=== PATIENT | female | born 1945 | race Caucasian/White ===

== ENCOUNTER 2018-05-03 13:42 | Outpatient (CLI) | payer MEDICARE, OTHER, SELFPAY ==
[2018-05-03 14:39] LABS: Abs Immature Grans 0.03 k/cumm (0.0-0.09); Absolute Basophil Count 0.12 k/cumm (0.0-0.2); Absolute Eosinophil Count 0.37 k/cumm (0.0-0.7); Absolute Monocyte Count 0.56 k/cumm (0.11-0.7); Basophils % 1.9; Eosinophils % 5.9; HCT 40.4 % (36.0-46.0); HGB 13.1 g/dL (12.0-15.5); Immature Grans % 0.5; Lymphocytes % 31.8; Mean Corp. HGB Concentration 32.4 g/dL (32.0-36.0); Mean Corpuscular Hemoglobin 25.8 pg (27.0-33.0); Mean Corpuscular Volume 79.5 fL (80-95); Mean Platelet Volume 9.9 fL (8.0-11.0); Monocytes % 8.9; Platelet Count 223 x1000/uL (130-400); RBC 5.08 m/cumm (4.00-5.20); RBC Distribution Width 15.6 % (11.7-14.6); White Blood Cell Count 6.28 k/cumm (4.4-10.8)
[2018-05-03 15:15] LABS: ALT 20 U/L (12-78); AST 19 U/L (15-37); Albumin 4.1 g/dL (3.4-5.0); Alkaline Phosphatase 58 U/L (46-116); Anion Gap 6.7 mmol/L (3-11); BUN 20 mg/dL (7-18); Bilirubin, Total 0.5 mg/dL (0.2-1.0); CO2 29.3 mmol/L (21.0-32.0); CREATININE 1.06 mg/dL (0.55-1.02); Calcium 9.2 mg/dL (8.5-10.1); Chloride 100 mmol/L (98-107); Cholesterol 243 mg/dL (50-200); Estimated GFR 50.81 (mL/min/1.73m2); Glucose 95 mg/dL (70-100); HDL Cholesterol 47 mg/dL (40-60); LDL CHOLESTEROL 148 mg/dL (<100); Potassium 4.5 mmol/L (3.5-5.1); Sodium 136 mmol/L (136-145); TSH (W/Ref FT4) 2.48 uIU/mL (0.358-3.74); Triglyceride 256 mg/dL (30-150)
== END 2018-05-03 14:02 ==
PROVIDERS: PCP Family Medicine; Visit Provider Family Medicine
DX: I10 Essential (primary) hypertension (principal); R00.2 Palpitations; D64.9 Anemia, unspecified
CPT/HCPCS: 36415; 80053; 80061; 83721; 84443; 85025

== ENCOUNTER 2018-10-31 12:15 | Outpatient (CLI) | payer MEDICARE, OTHER, SELFPAY ==
--- NOTE | 2018-10-31 12:29 | DI.RAD_ITS ---
SYMPTOM/DIAGNOSIS: COUGH, EX SMOKER, R05 PA AND LATERAL CHEST: The heart is not enlarged. There are a few areas of linear pulmonary scarring in the bases. Otherwise the lungs are clear. No pleural effusion is seen. CONCLUSION: No evidence of acute disease.
== END 2018-10-31 12:35 ==
PROVIDERS: PCP Family Medicine; Visit Provider Family Medicine
DX: R05 Cough (principal); Z87.891 Personal history of nicotine dependence
CPT/HCPCS: 71046

== ENCOUNTER 2019-05-17 01:46 | Outpatient (CLI) | payer MEDICARE, OTHER, SELFPAY ==
--- NOTE | 2019-05-17 10:48 | DI.US_ITS ---
EXAM: US ABDOMEN CLINICAL HISTORY: nausea R11.0 TECHNIQUE: Ultrasound performed using standard protocol. COMPARISON: No exams were available for comparison FINDINGS: The liver is normal in size and echogenicity. No biliary dilatation or focal liver lesions are seen . The gallbladder is unremarkable, without evidence of stones or wall thickening. The pancreas was not well seen. The aorta is normal in diameter. Small renal cysts are noted. There is no evidence of hydronephrosis or renal calculi. IMPRESSION: Incidental renal cysts. No evidence of gallbladder or liver abnormality.
[2019-05-17 12:10] LABS: HCT 42.3 % (36.0-46.0); HGB 14.1 g/dL (12.0-15.5); Mean Corp. HGB Concentration 33.3 g/dL (32.0-36.0); Mean Platelet Volume 9.6 fL (8.0-11.0); Platelet Count 235 x1000/uL (130-400); RBC 5.22 m/cumm (4.00-5.20); RBC Distribution Width 15.8 % (11.7-14.6); White Blood Cell Count 5.51 k/cumm (4.4-10.8)
[2019-05-17 12:45] LABS: Iron 142 ug/dL (50-175)
[2019-05-17 13:00] LABS: ALT 16 U/L (14-59); AST 20 U/L (15-37); Albumin 4.3 g/dL (3.4-5.0); Alkaline Phosphatase 51 U/L (46-116); Anion Gap 8.8 mmol/L (3-11); BUN 10 mg/dL (7-18); Bilirubin, Total 0.9 mg/dL (0.2-1.0); CO2 29.2 mmol/L (21.0-32.0); CREATININE 1.04 mg/dL (0.55-1.02); Calcium 9.4 mg/dL (8.5-10.1); Chloride 100 mmol/L (98-107); Glucose 90 mg/dL (70-100); Sodium 138 mmol/L (136-145); TSH (W/Ref FT4) 2.61 uIU/mL (0.36-3.74)
== END 2019-05-17 02:06 ==
PROVIDERS: PCP Family Medicine; Visit Provider Family Medicine
DX: R11.0 Nausea (principal); N28.1 Cyst of kidney, acquired; E61.1 Iron deficiency; I10 Essential (primary) hypertension; J20.9 Acute bronchitis, unspecified; J44.9 Chronic obstructive pulmonary disease, unspecified; L67.9 Hair color and hair shaft abnormality, unspecified; K59.00 Constipation, unspecified; Z87.19 Personal history of other diseases of the digestive system; Z98.890 Other specified postprocedural states
CPT/HCPCS: 36415; 80053; 85027; 76700; 83540; 84443

== ENCOUNTER 2020-01-15 12:35 | Outpatient (CLI) | payer MEDICARE, OTHER, SELFPAY ==
--- NOTE | 2020-01-15 12:45 | DI.RAD_ITS ---
EXAM: XR FOOT RT COMPLETE CLINICAL HISTORY: r foot pain, M79.671. TECHNIQUE: 2D digital imaging was performed. COMPARISON: CR RIGHT FOOT COMPLETE from 02/08/2015 FINDINGS: The screw is again seen in the head of the 5th metatarsal. There has been a prior fusion of proximal and middle phalanges 2nd as well as 1st metatarsal bunionectomy. There is mild spurring at the Achi lles insertion. Vascular calcifications are faintly seen. There is a tiny accessory navicular. IMPRESSION: Postsurgical and degenerative changes. No acute abnormality. DATA REPOSITORY: RADIATION DOSE DELIVERED:
== END 2020-01-15 12:55 ==
PROVIDERS: PCP Family Medicine; Visit Provider Family Medicine
DX: M79.671 Pain in right foot (principal); M19.071 Primary osteoarthritis, right ankle and foot; Z98.890 Other specified postprocedural states
CPT/HCPCS: 73630

== ENCOUNTER 2020-02-22 13:49 | Outpatient (REF) | payer MEDICARE, OTHER, SELFPAY ==
--- NOTE | 2020-02-22 13:00 | PAPFT_PTH ---
PATIENT: Meredith Pak LOC: [facility] U#:[id number] AGE/SX: 74/F ROOM: RE02/22/[address]: KESHA Becerra : 1945 BED: DIS: 02/22/2020 SPEC #: [id number] RECD: 02/22/20 17:42 STATUS: BEKAH REQ #: [id number] MICHAEL: 02/22/20 13:[address]: Virginia Patel DEPT: [facility] Cytology RECD BY: Yeny Mccarty ENTERED: 02/22/20 17:42 SP TYPE: PAPFT OTHR DR: Viki Loera MD, DC Tissues: 1 - CX/ENDOCX FOR PAP SMEARS Procedures: PAP THIN PREP/[facility] Screening HPV DNA PROBE Comments: [id number]
== END 2020-02-22 14:09 ==
LOC: LBN 13:49
PROVIDERS: PCP Family Medicine; Visit Provider Nurse Practitioner Family
DX: Z12.4 Encounter for screening for malignant neoplasm of cervix (principal); Z11.51 Encounter for screening for human papillomavirus (HPV)
CPT/HCPCS: 88142; 87624

== ENCOUNTER 2020-05-14 16:10 | Outpatient (REF) | payer MEDICARE, OTHER, SELFPAY ==
[2020-05-15 11:54] LABS: *AMPHETAMINES SCREEN URINE Negative (Negative); *BARBITURATES SCREEN URINE Negative (Negative); *BENZODIAZEPINES SCREEN URINE POSITIVE (Negative); Cannabinoids THC Negative (Negative); Cocaine Screen,Urine Negative (Negative); METHADONE URINE SCREEN Negative (Negative); OPIATES URINE SCREEN Negative (Negative)
[2020-05-15 12:00] LABS: Tricyclic Antidepressants Negative (Negative)
[2020-05-18 14:13] LABS: Fentanyl Interpretation Positive.; Fentanyl by LC-MS/MS 108.2 ng/mL; Norfentanyl by LC-MS/MS 997.8 ng/mL
== END 2020-05-14 16:30 ==
LOC: LBN 16:10
PROVIDERS: PCP Family Medicine; Visit Provider Family Medicine
DX: G89.4 Chronic pain syndrome (principal); Z79.899 Other long term (current) drug therapy
CPT/HCPCS: 80307; 80354

== ENCOUNTER 2020-07-04 11:54 | Outpatient (CLI) | payer MEDICARE, OTHER, SELFPAY ==
--- NOTE | 2020-07-04 15:00 | DI.RAD_ITS ---
EXAM: XR KNEE LT 3V AP,LAT,MARCOS CLINICAL HISTORY: left knee pain m25.569. TECHNIQUE: 2D digital imaging was performed. COMPARISON: No exams were available for comparison FINDINGS: BONES: No acute fracture is present. No bony destructive lesion is seen. JOINTS: The knee is normally aligned. No joint effusion is seen. Joint spaces are well maintained. There is mild periarticular spurring. Chondrocalcinosis is seen. SOFT TISSUE: Vascular calcifications are present. IMPRESSION: Mild degenerative changes and chondrocalcinosis. DATA REPOSITORY: RADIATION DOSE DELIVERED:
== END 2020-07-04 12:14 ==
PROVIDERS: PCP Family Medicine; Visit Provider Family Medicine
DX: M17.12 Unilateral primary osteoarthritis, left knee (principal); M11.262 Other chondrocalcinosis, left knee
CPT/HCPCS: 73562

== ENCOUNTER 2020-07-30 22:57 | Outpatient (REF) | payer MEDICARE, OTHER, SELFPAY ==
[2020-07-30 21:40] LABS: HCT 40.9 % (36.0-46.0); HGB 13.7 g/dL (11.2-15.7); MCH 26.4 pg (27.0-33.0); MCHC 33.5 % (32.0-36.0); MPV 10.9 fL (8.0-11.0); Platelet Count 234 10^3/uL (130-400); RBC 5.18 10^6/uL (3.93-5.22); RDW 14.9 % (11.7-14.6); RDW-SD 43.3 fL; WBC 5.68 10^3/uL (4.4-10.8)
[2020-07-30 22:35] LABS: D-Dimer 1531 ng/mlFEU (<500)
[2020-07-30 22:37] LABS: ESR 13 mm/hr (0-30)
== END 2020-07-30 23:17 ==
LOC: LBN 22:57
PROVIDERS: PCP Family Medicine; Visit Provider Family Medicine
DX: R79.89 Other specified abnormal findings of blood chemistry (principal); D64.9 Anemia, unspecified; M25.562 Pain in left knee; J44.0 Chronic obstructive pulmonary disease with (acute) lower respiratory infection; J20.9 Acute bronchitis, unspecified
CPT/HCPCS: 85027; 85652; 85379

== ENCOUNTER 2020-08-05 02:21 | Outpatient (CLI) | payer MEDICARE, OTHER, SELFPAY ==
--- NOTE | 2020-08-05 07:45 | DI.US_ITS ---
EXAM: US LOWER EXTREMITY VENOUS LT CLINICAL HISTORY: L leg pain/ elevated d dimer/ h/o breast ca,m79.605 TECHNIQUE: Grayscale, color, and doppler imaging of the deep venous system of the left lower extremi ty was performed. No exams were available for comparison FINDINGS: There is no evidence of intraluminal thrombus and there is normal compression and augmentation demons trated within the common femoral veis, femoral veis, and popliteal vein. In the ipsilateral calf the interrogated veins also exhibit normal compression/ augmentation properti es. The greater saphenous veins also appear patent as does the saphenofemoral junction. IMPRESSION: 1. No evidence of DVT in the left lower extremity. 2. Incidentally noted is significant atherosclerotic disease on the arterial side in the distal left femoral artery and in the ipsilateral popliteal artery. 3. Please note this patient had chest CTA today which is positive for right-sided pulmonary embolus . Please see that separate report. DATA REPOSITORY:
--- NOTE | 2020-08-05 07:45 | DI.CT_ITS ---
EXAM: CT CHEST PE CTA CLINICAL HISTORY: cont elevated d dimer/ heavy smoking hx,? pe,acute bronchitis. TECHNIQUE: Imaging Protocol: CT angiography of the chest was performed using pulmonary embolus kevin col. Multi planar reconstructions were performed. CONTRAST MATERIAL: Intravenous: Omnipaque 350 Contrast volume: 75 cc COMPARISON: CT CTA ABDOMEN PELVIS from 07/16/2017 FINDINGS: CHEST: PULMONARY ARTERIES: There is intraluminal filling defect in the 2nd order right upper lobe vessel con sistent with pulmonary embolus. There are no obvious filling defects within the lower lobe vessels. No intraluminal filling defects seen in the opposite-left lung.No evidence of central intraluminal d efect. LUNGS: No evidence of pulmonary infarction. COPD. Interstitial disease. Some mild pleural based in filtrate is seen in the posterior segment of the right upper lobe. Also in the posterior basal segme nts of both lower lobes and the atelectasis is seen in the lingular segment of the left lung. There are no pleural effusions. No ominous pulmonary nodules. No significant focal findings in trachea an d mainstem bronchi.. MEDIASTINUM: There is no hilar nor mediastinal adenopathy. Visualized thyroid unremarkable. CARDIAC: Heart size is normal. There is no pericardial effusion.Caliber of the thoracic aorta is wit hin normal limits. There is no evidence of shift of the interventricular septum. PARTIALLY VISUALIZED UPPERMOST ABDOMEN: No significant adrenal masses. There is a cyst in the superi or pole of the left kidney noted which measures 2 centimetres. The entire kidneys are not included i n the field of view. OSSEOUS: No significant osseous lesions.. IMPRESSION: 1. Positive study. There is a single intraluminal filling defect in what appears to be a right uppe r lobe pulmonary artery. No other intraluminal filling defects noted on either side. No pleural eff usions. No obvious pulmonary infarction.. 2. Findings are superimposed upon COPD and some interstitial disease as well as some mild infiltrates bilaterally as described above. No intrathoracic adenopathy evident. 3. RADIATION DOSE DELIVERED: LINK-TO-SR Total DLP DATA REPOSITORY: All CT scans at this facility are submitted to the National Radiology Data Registry (NRDR) Dose Index Registry (DIR) with the [employer] ([employer]). RADIATION OPTIMIZATION: All CT scans at this facility use at least one of these dose optimization te chniques: automated exposure control; mA and/or kV adjustment per patient size (includes targeted exa ms where dose is matched to clinical indication); or iterative reconstruction.
[2020-08-05 10:32] LABS: CREATININE 1.12 mg/dL (0.55-1.02); Estimated GFR 47.43 (mL/min/1.73m2)
[2020-08-05] MEDS: Omnipaque 350 MG/ML 100 ML BTL IJ (11:16)
[2020-08-05] MEDS: Normal Saline - Diluent 50 ML VIAL IV (11:17)
== END 2020-08-05 02:41 ==
PROVIDERS: PCP Family Medicine; Visit Provider Family Medicine
DX: R91.8 Other nonspecific abnormal finding of lung field (principal); J44.9 Chronic obstructive pulmonary disease, unspecified; M79.605 Pain in left leg; R79.1 Abnormal coagulation profile; I26.99 Other pulmonary embolism without acute cor pulmonale; Z87.891 Personal history of nicotine dependence
CPT/HCPCS: 71275; 87077; 81003; 81015; 82565; 87086; 87186; 93971; J3490

== ENCOUNTER 2020-08-05 04:08 | Outpatient (CLI) | payer MEDICARE, OTHER, SELFPAY ==
[2020-08-05 12:13] LABS: Bilirubin Negative (Negative); Blood Small (Negative); Clarity Clear (Clear); Glucose Negative (Negative); Ketones Negative (Negative); Leukocyte Esterase Small (Negative); Nitrite Negative (Negative); Specific Gravity 1.015 (1.005-1.025); Urobilinogen 0.2 EU/dL (Up TO 0.2); pH 6.5 (5-8)
[2020-08-05 12:24] LABS: Bacteria Few HPF (Negative); C & S Indicated? Yes; Casts Negative LPF (Negative); Crystals Negative HPF (Negative); Epithelial Cells Rare HPF (Negative); Mucus Trace (Negative)
== END 2020-08-05 04:28 ==
PROVIDERS: PCP Family Medicine; Visit Provider Family Medicine
DX: R30.0 Dysuria (principal)
CPT/HCPCS: 87077; 81003; 81015; 87086; 87186

== ENCOUNTER → 2020-08-12 13:52 | Outpatient (BNVA) | payer MEDICARE, OTHER, SELFPAY | PROVIDERS: PCP Family Medicine; Referring Provider Family Medicine; Visit Provider Student in an Organized Health Care Education/Training Program | DX: M65.332 Trigger finger, left middle finger (principal) | CPT/HCPCS: 99203; 99204 ==

== ENCOUNTER 2020-09-10 06:23 | Day surgery (SDC) | payer MEDICARE, OTHER, SELFPAY ==
[2020-09-10 06:30] VITALS: BP 117/81; PULSE 87; RESP 18; TEMP 36.3; O2SAT 94
--- NOTE | 2020-09-10 07:27 | W.PM.DSUDISC ---
Discharge Plan Disposition Patient Disposition: HOME Condition: Good Discharge Details Reason For Visit: Left middle finger trigger finger Attending Provider: Yazan Merchant Primary Care Provider: Viki Loera Home Meds and New Rx's Prescriptions: Continued albuterol sulfate [Proventil HFA] 90 mcg/actuation HFA aerosol inhaler 2 puff Inhalation Q4H PRN PRN (Reason: bronchospasm) Qty: 1 RF: 11 cyanocobalamin (vitamin B-12) 100 mcg tablet 100 mcg PO DAILY RF: 0 clobetasol 0.05 % cream 1 applic Topical BID PRN (Reason: rash) Qty: 15 RF: 0 lidocaine 5 % adhesive patch,medicated 1 patch TP DAILY PRN (Reason: radiculopathy) Qty: 30 RF: 5 NARCOTIC CONTRACT RF: 0 Narcan 4 MG spray,non-aerosol 4 mg NS DAILY PRNQty: 2 RF: 12 (DME) Space Chamber Plus 1 EACH spacer Miscellaneous PRN Qty: 1 RF: 1 aspirin,buffd-calcium carb-mag [Tri-Buffered Aspirin] 325 mg tablet 325 mg PO DAILY Qty: 90 RF: 11 sennosides-docusate sodium 8.6-50 mg tablet 2 tab PO TID Qty: 540 RF: 12 ibuprofen 600 mg tablet 600 mg PO TID PRN (Reason: pain) Qty: 90 RF: 0 cholecalciferol (vitamin D3) [Vitamin D3] 50 mcg (2,000 unit) capsule 2,000 unit PO DAILY Qty: 90 RF: 12 polyethylene glycol 3350 [Miralax] 17 gram powder in packet 17 gm PO DAILY Qty: 100 RF: 4 betamethasone dipropionate 0.05 % cream 1 applic Topical BID PRN (Reason: rash) Qty: 45 RF: 0 epinephrine 0.3 mg/0.3 mL auto-injector 0.3 mg IM ONCE Qty: 2 RF: 12 amlodipine 10 mg tablet 10 mg PO DAILY Qty: 90 RF: 4 omeprazole 20 mg capsule,delayed release(DR/EC) 20 mg PO DAILY Qty: 90 RF: 12 budesonide-formoterol [Symbicort] 160-4.5 mcg/actuation HFA aerosol inhaler 2 puff Inhalation BID Qty: 3 RF: 11 bupropion HCl 100 mg tablet sustained-release 12 hr 100 mg PO BID Qty: 180 RF: 12 clonidine HCl 0.1 mg tablet 0.1 mg PO BID Qty: 180 RF: 12 gabapentin 800 mg tablet 800 mg PO TID Qty: 270 RF: 12 quetiapine 100 mg tablet 200 mg PO HS Qty: 180 RF: 12 prednisone 20 mg tablet 20 mg PO DAILY Qty: 10 RF: 0 apixaban 5 mg tablet See Rx Instructions PO BID Qty: 194 RF: 6 ciprofloxacin HCl 250 mg tablet 250 mg PO BID Qty: 14 RF: 0 diazepam 5 mg tablet 5 mg PO QHS MDD 5mg PRN (Reason: sleep) Qty: 30 RF: 4 fentanyl 12 mcg/hr patch 72 hour 1 patch TD Q48H MDD 1 Qty: 15 RF: 0 fentanyl 25 mcg/hr patch 72 hour 1 patch TD Q48H MDD 1 Qty: 15 RF: 0 Discharge Instructions Stand Alone Forms: Shonda Henao Finger Release Referrals: Yazan Merchant MD [ [facility] STAFF PHYSICIAN] - Activity:: Elevate Remove Dressings/Wound Care:: 48 hours Shower/Bathe:: 48 hours Diet:: As Tolerated Discharge Orders Discharge Orders: Discharge Order (Routine); Ordered 09/10/20 Ordered By: Carina Armenta DS: Diagnosis Discharge Diagnosis (1) Trigger middle finger of left hand: Status: Acute
[2020-09-10] MEDS: Sodium Bicarbonate 50 MEQ/50 ML VIAL (07:30)
--- NOTE | 2020-09-10 07:57 | ROE_ITS ---
Date of service: 09/10/20 Time of Service: 07:57 Operative Note Operative Note DATE OF PROCEDURE: 09/10/20 PRE-OP DIAGNOSIS: Left Middle Finger Trigger Finger POST-OP DIAGNOSIS: same PROCEDURE: Trigger Finger Release - Left Middle Finger SURGEON: Yazan Merchant ANESTHESIA: local ESTIMATED BLOOD LOSS: 2 PATHOLOGY: none sent TOURNIQUET TIME: 0 COMPLICATIONS: None Patient was transported to: same day Patient's condition: stable Indications: I have seen Pat in clinic for symptoms of a trigger finger. The catching, clicking, locking, and pain limited function. The diagnosis of trigger finger was evident. The symptoms had not responded to conservative measures. I discussed trigger finger release with the patient. I reviewed the risks of the procedure to include, but not limited to, bleeding, infection, pain, stiffness, incomplete release, damage to nerves or vessels, continued catching, recurrence. Despite these risks, the patient elected to proceed. Findings: There was a tightened A1 jessica which was released. The flexor tendons were inspected and the patient was able to move the finger without any catching, clicking, or locking. Procedure Description: Pat was greeted in the preoperative holding area where the correct side was identified and marked. The consent was reviewed with the patient and signed. All questions were answered. She was taken back to the operating room. The patient was placed into the supine position on the operating room table with the left arm on an arm board. All bony prominences were well padded. No prophylactic antibiotics were administered since this was a clean, elective hand surgical case. The left arm was then prepped with Chloraprep and draped in a standard fashion with stockinette and extremity drape. A timeout to confirm correct identity, side and site, procedure, allergies, anesthesia, and medical concerns was performed. The surgical site was marked as a longitudinal incision directly over the A1 jessica of the involved digit. This was confirmed with palpation during finger flexion. This area, overlying the metacarpal head, was then anesthetized with 1% Lidocaine. The patient tolerated this well and once the anesthetic had setup, the procedure began. A longitudinal incision was made through skin only, approximately 1cm. The deep tissues were dissected bluntly. Once the A1 jessica and flexor tendons were identified the soft tissue including neurovascular structures were retracted medially and laterally. There were no crossing structures over the A1 jessica. The proximal edge of the jessica was identified and the jessica was incised with tenotomy scissors. There was a release of the tendons once this was fully released. The patient was asked to move the finger into deep flexion and back to extension. There was no recreation of the pre- operative symptoms. The hand was then once more inspected for any A0 jessica or area of possible constriction. The wound was then irrigated and the skin was closed with a 4-0 Nylon. This was dressed with gauze and a Conform dressing. The patient tolerated the procedure well and was returned to the Same Day Surgery area in a stable condition suffering no known complication.
== END 2020-09-10 08:10 | disposition home or self-care (01) ==
PROVIDERS: PCP Family Medicine; Visit Provider Student in an Organized Health Care Education/Training Program
PROC: (CPT 26055; principal; 2020-09-10 07:30)
DX: M65.332 Trigger finger, left middle finger (principal)
CPT/HCPCS: 26055

== ENCOUNTER → 2020-09-20 10:30 | Outpatient (BNVA) | payer MEDICARE, OTHER, SELFPAY | PROVIDERS: PCP Family Medicine; Referring Provider Family Medicine; Visit Provider Physician Assistant | DX: Z47.89 Encounter for other orthopedic aftercare (principal); M65.332 Trigger finger, left middle finger ==

== ENCOUNTER → 2020-09-30 14:36 | Outpatient (BNVA) | payer MEDICARE, OTHER, SELFPAY | PROVIDERS: PCP Family Medicine; Referring Provider Family Medicine; Visit Provider Student in an Organized Health Care Education/Training Program | DX: Z47.89 Encounter for other orthopedic aftercare (principal); M65.332 Trigger finger, left middle finger ==

== ENCOUNTER → 2020-10-28 13:06 | Outpatient (BNVA) | payer MEDICARE, OTHER, SELFPAY | PROVIDERS: PCP Family Medicine; Referring Provider Family Medicine; Visit Provider Student in an Organized Health Care Education/Training Program | DX: Z47.89 Encounter for other orthopedic aftercare (principal); M65.332 Trigger finger, left middle finger | CPT/HCPCS: 99213 ==

== ENCOUNTER 2020-10-29 09:07 | Day surgery (SDC) | payer MEDICARE, OTHER, SELFPAY ==
--- NOTE | 2020-10-29 07:29 | PDOC.DSDIS_ITS ---
Discharge Plan Disposition Patient Disposition: HOME Condition: Good Discharge Details Reason For Visit: Trigger middle finger of left hand Attending Provider: Yazan Merchant Primary Care Provider: Viki Loera Home Meds and New Rx's Prescriptions: Continued albuterol sulfate [Proventil HFA] 90 mcg/actuation HFA aerosol inhaler 2 puff Inhalation Q4H PRN PRN (Reason: bronchospasm) Qty: 1 RF: 11 cyanocobalamin (vitamin B-12) 100 mcg tablet 100 mcg PO DAILY RF: 0 clobetasol 0.05 % cream 1 applic Topical BID PRN (Reason: rash) Qty: 15 RF: 0 polyethylene glycol 3350 [Miralax] 17 gram powder in packet See Rx Instructions PO DAILY Qty: 100 RF: 4 fentanyl 12 mcg/hr patch 72 hour 1 patch TD Q48H MDD 1 Qty: 15 RF: 0 fentanyl 25 mcg/hr patch 72 hour 1 patch TD Q48H MDD 1 Qty: 15 RF: 0 lidocaine 5 % adhesive patch,medicated 1 patch TP DAILY PRN (Reason: radiculopathy) Qty: 30 RF: 5 NARCOTIC CONTRACT RF: 0 Narcan 4 MG spray,non-aerosol 4 mg NS DAILY PRNQty: 2 RF: 12 (DME) Space Chamber Plus 1 EACH spacer Miscellaneous PRN Qty: 1 RF: 1 aspirin,buffd-calcium carb-mag [Tri-Buffered Aspirin] 325 mg tablet 325 mg PO DAILY Qty: 90 RF: 11 ibuprofen 600 mg tablet 600 mg PO TID PRN (Reason: pain) Qty: 90 RF: 0 cholecalciferol (vitamin D3) [Vitamin D3] 50 mcg (2,000 unit) capsule 2,000 unit PO DAILY Qty: 90 RF: 12 polyethylene glycol 3350 [Miralax] 17 gram powder in packet 17 gm PO DAILY Qty: 100 RF: 4 betamethasone dipropionate 0.05 % cream 1 applic Topical BID PRN (Reason: rash) Qty: 45 RF: 0 epinephrine 0.3 mg/0.3 mL auto-injector 0.3 mg IM ONCE Qty: 2 RF: 12 budesonide-formoterol [Symbicort] 160-4.5 mcg/actuation HFA aerosol inhaler 2 puff Inhalation BID Qty: 3 RF: 11 bupropion HCl 100 mg tablet sustained-release 12 hr 100 mg PO BID Qty: 180 RF: 12 clonidine HCl 0.1 mg tablet 0.1 mg PO BID Qty: 180 RF: 12 gabapentin 800 mg tablet 800 mg PO TID Qty: 270 RF: 12 apixaban 5 mg tablet See Rx Instructions PO BID Qty: 194 RF: 6 diazepam 5 mg tablet 5 mg PO QHS MDD 5mg PRN (Reason: sleep) Qty: 30 RF: 4 amlodipine 10 mg tablet 10 mg PO DAILY Qty: 90 RF: 4 sennosides-docusate sodium 8.6-50 mg tablet 2 tab PO TID Qty: 540 RF: 12 omeprazole 20 mg capsule,delayed release(DR/EC) 20 mg PO DAILY Qty: 90 RF: 12 quetiapine 100 mg tablet 200 mg PO HS Qty: 180 RF: 12 fentanyl 25 mcg/hr patch 72 hour 1 patch TD Q48H MDD 1 Qty: 15 RF: 0 fentanyl 12 mcg/hr patch 72 hour 1 patch TD Q48H MDD 1 Qty: 15 RF: 0 Discharge Instructions Additional Instructions: Trigger Finger Revision Discharge Instructions Activity: You may use your fingers for light activity. You should limit any excessive motion or forceful gripping until the sutures have been removed. Dressings: You should keep the initial surgical dressing in place for at least 3 days. You may remove your dressings and get the wound wet after 3 days. You should keep the dressings and the wound clean at all times. You may keep the initial dressing in place until your follow-up but keep the wound covered with light gauze until the sutures are removed. Medications: - You should take Tylenol around the clock as per java sybase developer's recommendations. Follow-up: 7-10 days for wound check and suture removal. Referrals: Yazan Merchant MD [ [facility] STAFF PHYSICIAN] - Activity:: Elevate Remove Dressings/Wound Care:: 72 hours Shower/Bathe:: 72 hours Diet:: As Tolerated Discharge Orders Discharge Orders: Discharge Order (Routine); Ordered 10/29/20 Ordered By: Carina Armenta DS: Diagnosis Discharge Diagnosis (1) Trigger middle finger of left hand: Status: Acute
[2020-10-29 09:49] VITALS: BP 117/73; PULSE 74; RESP 16; TEMP 36.3; O2SAT 92
[2020-10-29] MEDS: Sodium Bicarbonate 50 MEQ/50 ML SYR (13:19)
--- NOTE | 2020-10-29 22:13 | ROE_ITS ---
Date of service: 10/29/20 Time of Service: 13:13 Operative Note Operative Note DATE OF PROCEDURE: 10/29/20 PRE-OP DIAGNOSIS: Left Middle Finger Recurrent Trigger and Tenosynovitis POST-OP DIAGNOSIS: same PROCEDURE: Left Middle Finger Tenosynovetomy SURGEON: Yazan Merchant ANESTHESIA TYPE: Local By Surgeon Refer to Anesthesia Record ESTIMATED BLOOD LOSS: 5 PATHOLOGY: none sent TOURNIQUET TIME: 0 COMPLICATIONS: None Patient was transported to: same day Patient's condition: stable Indications: I have seen Meredith in clinic for increasing pain and restricted motion after trigger finger release. There was significant pain, thickness of the flexor tendon, and worsening restricted motion. Given her continued worsen ing of symptoms with concern of inflammatory tenosynovitis vs acute Dupuytren's, I offered surgical debridement of the tendon with revision trigger finger release and tenosynovectomy. I reviewed the risks of the procedure to include, but not limited to, bleeding, infection, pain, stiffness, incomplete release, damage to nerves or vessels, continued catching, recurrence. Despite these risks, the patient elected to proceed. Findings: There was thickned inflmmatory tissue encasing the flexor tendons. Notable fluid around the tendons but no Dupuytren's disease. Aggressive synovectomy was performed down into the palm. She was able to move the finger without any catching, clicking, or locking. Procedure Description: Meredith was greeted in the preoperative holding area where the correct side was identified and marked. The consent was reviewed with the patient and signed. All questions were answered. Meredith was taken back to the operating room. The patient was placed into the supine position on the operating room table with the left arm on an arm board. All bony prominences were well padded. No prophylactic antibiotics were administered since this was a clean, elective hand surgical case. The left arm was then prepped with Chloraprep and draped in a standard fashion with [facility] kinette and extremity drape. A timeout to confirm correct identity, side and site, procedure, allergies, anesthesia, and medical concerns was performed. The surgical site was marked as a Martha type incision across the A1 jessica and moving proximally into the palm of the involved digit, left middle finger. This area was then anesthetized with 1% Lidocaine with epinephrine, buffered with sodium bicarbonate. The patient tolerated this well and once the anesthetic had setup, the procedure began. The Martha incision was made with sharp dissection through skin only. The deep tissues were dissected bluntly. The deeper tissues were bluntly dissected to elevate the skin flaps and soft tissue including neurovascular structures were retracted medially and laterally. Interestingly, there is a dense casing seen over the flexor tendons where they were not initially visible. I was able to incise this casing and visualize the tendons. I then completed the release of this all the way through the palm and into the region of the residual A1 jessica. It was impressed with how dense this tissue was. Underneath this casing was dense and thickened and sticky inflammatory tissue. Working through each of the slips of the FDS as well as the FDP tendons, I removed and resected any inflammatory tissue throughout the width of the wound. There was some dense fibrous tissue overlying the flexor tendons but there is no true Dupuytren's cord appreciable. I continue to work proximally and distally to remove any of the inflammatory tissue from around the tendon. There was notable fluid seen around the tendon once this tissue was removed. The tendons were freely mobile and range of motion was tested and showed no signs of significant limitations nor clicking or triggering. The wound was then irrigated and the skin was closed with a 4-0 Nylon. This was dressed with gauze and a Conform dressing. The patient tolerated the procedure well and was returned to the Same Day Surgery area in a stable condition suffering no known complication.
== END 2020-10-29 14:40 | disposition home or self-care (01) ==
PROVIDERS: PCP Family Medicine; Visit Provider Student in an Organized Health Care Education/Training Program
PROC: (CPT 26055; principal; 2020-10-29 13:00)
DX: M65.332 Trigger finger, left middle finger (principal); M65.842 Other synovitis and tenosynovitis, left hand
CPT/HCPCS: 26055

== ENCOUNTER → 2020-10-31 13:34 | Outpatient (BNVA) | payer MEDICARE, OTHER, SELFPAY | PROVIDERS: PCP Family Medicine; Referring Provider Family Medicine; Visit Provider Physician Assistant | DX: Z47.89 Encounter for other orthopedic aftercare (principal); M96.89 Other intraoperative and postprocedural complications and disorders of the musculoskeletal system; M79.89 Other specified soft tissue disorders; G89.18 Other acute postprocedural pain; Z79.01 Long term (current) use of anticoagulants | CPT/HCPCS: 99213 ==

== ENCOUNTER → 2020-11-07 11:01 | Outpatient (BNVA) | payer MEDICARE, OTHER, SELFPAY | PROVIDERS: PCP Family Medicine; Referring Provider Family Medicine; Visit Provider Student in an Organized Health Care Education/Training Program | DX: Z47.89 Encounter for other orthopedic aftercare (principal); M65.332 Trigger finger, left middle finger ==

== ENCOUNTER → 2020-11-11 10:46 | Outpatient (BNVA) | payer MEDICARE, OTHER, SELFPAY | PROVIDERS: PCP Family Medicine; Referring Provider Family Medicine; Visit Provider Student in an Organized Health Care Education/Training Program | DX: R69 Illness, unspecified (principal) ==

== ENCOUNTER 2021-05-05 10:31 | Outpatient (CLI) | payer MEDICARE, OTHER, SELFPAY ==
[2021-05-05 12:50] LABS: HCT 36.8 % (36.0-46.0); HGB 11.8 g/dL (11.2-15.7); MCH 24.2 pg (27.0-33.0); MCHC 32.1 % (32.0-36.0); MCV 75.4 fL (80-95); MPV 9.8 fL (8.0-11.0); Platelet Count 326 10^3/uL (130-400); RBC 4.88 10^6/uL (3.93-5.22); RDW 15.6 % (11.7-14.6); RDW-SD 42.5 fL; WBC 6.47 10^3/uL (4.4-10.8)
[2021-05-05 13:10] LABS: ALT 14 U/L (14-59); AST 13 U/L (15-37); Albumin 3.8 g/dL (3.4-5.0); Alkaline Phosphatase 70 U/L (46-116); Anion Gap 8.7 mmol/L (3-11); BUN 14 mg/dL (7-18); Bilirubin, Total 0.8 mg/dL (0.2-1.0); CO2 29.3 mmol/L (21.0-32.0); Calcium 9.6 mg/dL (8.5-10.1); Chloride 99 mmol/L (98-107); Estimated GFR 53.91 (mL/min/1.73m2); Glucose 109 mg/dL (74-106); Lipase 111 U/L (73-393); Potassium 3.6 mmol/L (3.5-5.1); Sodium 137 mmol/L (136-145); TSH (W/Ref FT4) 1.34 uIU/mL (0.36-3.74); Total Protein 7.1 g/dL (6.4-8.2)
== END 2021-05-05 10:32 | disposition home or self-care (01) ==
LOC: LOS 10:31
PROVIDERS: PCP Family Medicine; Referring Provider Family Medicine; Visit Provider Family Medicine
DX: R63.4 Abnormal weight loss (principal); R10.9 Unspecified abdominal pain; K59.00 Constipation, unspecified; R07.9 Chest pain, unspecified
CPT/HCPCS: 36415; 80053; 83690; 85027; 84443

== ENCOUNTER 2021-05-08 01:20 | Outpatient (CLI) | payer MEDICARE, OTHER, SELFPAY ==
--- NOTE | 2021-05-08 07:45 | DI.NM_ITS ---
APPROVED REPORT Exam: Pharmacologic Patient Location: Out-Patient Room/Bed: Stress Nurse: Leona Fisher RN Ordering Provider:YARELY DALEY, Contact Number: [phone] BMI: 24.02 Baseline Rhythm: Sinus Rhythm Comment: Frequent PVCs Indications: Chest pain and left arm pain Medical History Medical History: Hypertension, hyperlipidemia, smoker (current), COPD, anxiety, rheumatic disease of mitral valve Cardiac Medications: Omeprazole, gabapentin, epinephrine, amlodipine, apixaban Allergies: ANA LUISA Inhibitors, Cephalexin, nut ??? unspecified, amoxicillin, ARB-Angiotensin Receptor, Bu talbital, Cephalosporins, Clotrimazole, codeine, diphenhydramine, fosinopril, lorazepam, losartan, mo dafinil, nabumetone, nitrofurantoin, Opioids - Morphine Analogues, Oxycodone, Penicillins, petrolatum , pregabalin, Sulfa, Tetracycline, tramadol, triamcinolone, iodine, nitroglycerin Cardiac Risk Factors: Hypertension, hyperlipidemia, smoker (current), COPD, family hx Previous Cardiac Procedures: cardiac cath (2000) Pretest Chest Pain Characteristics: L side chest pressure 6/10 Exercise History: Sedentary Physical Disabilities: Shuffling gait Lung Sounds: Clear to auscultation Heart Sounds: Regular Stress Test Details Test: Pharmacologic stress was paired with low level exercise. Reason for pharmacologic stress test: physical limitation. Nuclear Acquisition: Rest Tc-99m/Stress Tc-99m 1 day Rest Isotope: Tc-99m Sestamibi. Dose: 11.3 Date: 05/08/2021 Injection Time: 1000 Stress Isotope: Tc-99m Sestamibi. Dose: 29.8 Date: 05/08/2021 Injection Time: 1205 HR Resting HR Supine: 85 bpm Max Heart Rate (APMHR): 144.333414 bpm Resting HR Standin bpm Target HR (85% APMHR): 122.626859 bpm Max HR Achieved: 111 bpm % of APMHR: 77.08 Recovery HR: 90 bpm BP Resting BP Supine: 150/76 mmHg Resting BP Standin/68 mmHg Max BP: 158/80 mmHg Recovery BP: 156/72 mmHg ECG Resting ECG: Sinus Rhythm Ectopy: Frequent PVCs Stress ECG: Sinus Tachycardia ST Change: No significant ST segment changes noted Arrhythmia: Frequent multifocal PVCs, couplet Recovery ECG: Sinus Rhythm Recovery ST Change: No significant ST segment changes noted Recovery Arrhythmia: Frequent PVCs Clinical Stress Symptoms: Chest pressure, general fatigue Rate Pressure Product: [id number] Stress ECG Conclusion 1. Resting electrocardiogram showed sinus rhythm with PVCs, voltage for left ventricular hypertrophy 2. Patient underwent pharmacologic stress along with low-level exercise 3. Peak heart rate was 77% of predicted for age 4. Electrocardiographically the test was nondiagnostic due to inadequate heart rate Stress Test Summary STAGE HR BP Symptoms NOTES Supine 85 150/76 SpO2 91% Baseline L side chest pressure 6/10 1 min post Lexiscan injection 105 140/66 SpO2 90% L side chest pressure 7/10 3 min post Lexiscan injection 96 158/80 SpO2 97% 6 min post Lexiscan injection 90 156/72 SpO2 96% Chest pressure back to baseline Prior to testing, pt was resting comfortably and stated her baseline chest pressure/heaviness is 6/10 on L side. Pt stated chest pressure/heaviness increased slightly during test but returned to baselin e during recovery. MPI Conclusion The associated myocardial perfusion scan shows no evidence of myocardial ischemia or prior infarction EF 67% Radiologist Interpretation Radiologist Interpretation by: eSa Ambriz MD Interpretation Date/Time: 05/08/2021 16:38:31
[2021-05-08] MEDS: Regadenoson 0.4 MG/5 ML SYR IVP (12:47)
== END 2021-05-08 01:40 ==
PROVIDERS: PCP Family Medicine; Visit Provider Family Medicine
DX: R07.9 Chest pain, unspecified (principal); I49.3 Ventricular premature depolarization; I10 Essential (primary) hypertension; E78.5 Hyperlipidemia, unspecified; F17.210 Nicotine dependence, cigarettes, uncomplicated; J44.9 Chronic obstructive pulmonary disease, unspecified; Z82.49 Family history of ischemic heart disease and other diseases of the circulatory system; R94.39 Abnormal result of other cardiovascular function study
CPT/HCPCS: 78452; 93016; 93018; 93017; J2785

== ENCOUNTER → 2021-07-22 00:54 | Outpatient (CLI) | payer MEDICARE, OTHER, SELFPAY ==
--- NOTE | 2021-07-22 13:39 | DI.US_ITS ---
APPROVED REPORT EXAM: Comprehensive 2D, Doppler, and color-flow Echocardiogram Patient Location: Out-Patient Transmission Mechanic: Nilda Plata RDCS (AE) Indications: Chest pain, Valve problems Other Information Study Quality: Adequate Conclusion Normal left ventricular wall thickness and chamber size. Estimated ejection fraction is 60%. Wall m otion is normal Normal right ventricular size and systolic function Both atria are normal in size Mildly sclerotic trileaflet aortic valve without stenosis or regurgitation There is no additional structural or hemodynamically significant valvular disease Wall motion Left Ventricle The left ventricle is normal size. The left ventricular systolic function is normal. The left ventric ular ejection fraction is within the normal range. There is normal left ventricular wall thickness. T here is normal LV segmental wall motion. There is no ventricular septal defect visualized. LVEF is 60 %. Right Ventricle The right ventricle is normal size. The right ventricular systolic function is normal. The RVSP is 34 .9mmHg. Atria The left atrium size is normal. The right atrium size is normal. The interatrial septum is intact wit h no evidence for an atrial septal defect. Aortic Valve The Aortic valve is mildly sclerotic. Aortic valve is trileaflet. There is no aortic valvular stenosi s. No aortic regurgitation is present. Mitral Valve The mitral valve is normal in structure. No evidence of mitral valve stenosis. Trace to mild mitral r egurgitation. Tricuspid Valve The tricuspid valve is normal in structure. There is no tricuspid valve stenosis. Trace tricuspid reg urgitation. Pulmonic Valve Pulmonic valve is not well visualized. There is no pulmonic valvular stenosis. There is no pulmonic v alvular regurgitation. Great Vessels The aortic root is normal in size. Ascending aorta is not well visualized. Aortic arch is not well vi sualized. IVC is normal in size and collapses >50% with inspiration. Pericardium There is no pericardial effusion. 2D Dimensions IVSD d PLAX 0.87 cm F: 0.6-1.0 LV Vol A2C d MOD 72.2 mL LVPW d PLAX 0.87 cm F: 0.6 - 1.0 LV Vol A4C d MOD 77.5 mL LVID d PLAX 4.01 cm F: 3.8 - 5.2 LA vol/ BSA A4C s A-L 16.6 mL/m2 LVDs 2.75 cm F: 2.2 - 3.5 LA Area A4C s MOD 12.55 cm2 Ao Root d 2.48 cm F: 2.7 - 3.3 LV EF A4C MOD 62.6 % RA Area A4C 12.46 cm2 LV EF A2C MOD 59.7 % RA Vol/ BSA A4C s A-L 15.9 mL/m2 LV EF Biplane MOD 60.6 % LV EF Teichholz 59.8 % SV 45.86 mL LVEF (Horvath's) 60.59 % F: 54 - 74 SV Index 26.27 mL/m2 LV Volume 59.53 mL F: 46 - 106 LV Volume Index 34.21 mL/m2 F: 29 - 61 LV Vol Biplane MOD 75.7 mL FS 31.30 % M-Mode TAPSE 2.07 cm (M/F) >1.7 LV Diastology MV E' medial 0.082 (>0.07 m/s) E/A Ratio 0.9 LV E/e MED 10.00 (<14) MV E Vmax 0.82 (0.4-1.3 m/s) MV E' lateral 0.083 (>0.1 m/s) MV A Vmax 0.90 (0.4-1.3 m/s) LV E/e LAT 9.85 (<14) MV E/A Ratio 0.88 MV E/E' medial 10.04 MV E/E' lateral 9.89 Aortic Valve LVOT Area 3.40 cm2 AoV Area Vmax 2.70 cm2 LVOT Vmax 0.93 m/s AoV Area/ BSA (Vmax) 1.55 cm2/m2 LVOT Mean Edward. 0.61 m/s MICHEL Mean Edward. 2.51 cm2 LVOT Peak Grad 3.4 mmHg MICHEL Mean Edward. Index 1.44 cm2/m2 LVOT Mean Grad 1.7 mmHg LVOT VTI 0.196 m LVOT Diam s 2.05 cm AoV Vmax 1.16 m/s Velocity Ratio 0.80 AoV Mean Edward. 0.83 m/s AoV Peak Grad 5.4 mmHg LVOT SV 66.50 mL AoV Mean Grad 3.0 mmHg AoV VTI 0.256 m AoV Area VTI 2.60 cm2 AoV Area/ BSA (VTI) 1.49 cm/m2 Mitral Valve MV DT 250 (160-240 msec) MV PHT 73 msec MV Area PHT 3.03 cm2 MV VTI 0.272 m MV Area VTI 2.44 (4.0-6.0 cm2) Pulmonary Valve PV Vmax 0.83 (0.5-1.5 m/s) RVOT Peak Gr. 1.58 mmHg PV Peak Grad 2.8 mmHg RVOT Mean Gr. 0.80 mmHg PV Mean Grad 1.7 mmHg RVOT VTI 0.137 m PV VTI 0.184 m RVOT Vmax 0.63 m/s Tricuspid Valve TR Peak Grad 31.8 mmHg TR Vmax 2.82 m/s RA Pressure 3.00 mmHg RVSP (TR) 34.9 mmHg
--- NOTE | 2021-07-22 14:07 | DI.US_ITS ---
Exam(s) US ABDOMEN EXAM: US ABDOMEN CLINICAL HISTORY: weight loss, abdominal pain, nausea.R10.9,R63.4 TECHNIQUE: Ultrasound abdomen performed using standard protocol. COMPARISON: US US ABDOMEN from 05/17/2019 FINDINGS: ABDOMINAL AORTA AND IVC: Visualized portions normal caliber. PANCREAS: Normal where visualized. LIVER: The liver measures 12 cm long. Evaluation of the liver is limited due to patient body habitus and bowel gas. No gross abnormalities identified. Hepatopedal flow in the Portal Vein. GALLBLADDER: No evidence of cholelithiasis. No evidence of wall thickening. No pericholecystic fluid identified. BILIARY SYSTEM: Common bile duct measures < 7 mm. No intrahepatic biliary ductal dilation. NICKERSON'S SIGN: Negative. KIDNEYS: Kidneys are symmetric in size. No evidence of renal calculi. No evidence of hydronephrosis. There is a 1.3 cm simple right parapelvic cyst. There are simple left renal cysts. The largest is i n the superior pole measures 2 cm. SPLEEN: Not enlarged. ASCITES: None seen. IMPRESSION: 1. Bilateral simple renal cysts. No follow-up is recommended. 2. Otherwise unremarkable abdominal ultrasound. DATA REPOSITORY:
== END ==
PROVIDERS: PCP Family Medicine; Visit Provider Family Medicine
DX: R10.9 Unspecified abdominal pain (principal); R63.4 Abnormal weight loss; R11.0 Nausea; N28.1 Cyst of kidney, acquired; I35.8 Other nonrheumatic aortic valve disorders
CPT/HCPCS: 93306; 76700

== ENCOUNTER 2021-08-22 01:08 | Outpatient (CLI) | payer MEDICARE, OTHER, SELFPAY ==
--- NOTE | 2021-08-22 07:45 | DI.US_ITS ---
Exam(s) US LOWER EXTREMITY VENOUS LT EXAM: US LOWER EXTREMITY VENOUS LT CLINICAL HISTORY: l knee pain, posterior, ? bakers cyst,s/p fall,m79.672,m71.20. TECHNIQUE: Lower extremity venous ultrasound performed using grayscale, color-flow, and spectral Do ppler analysis. COMPARISON: CR XR KNEE LT 3V AP,LAT,MARCOS from 08/22/2021 FINDINGS: The common femoral, femoral and popliteal veins demonstrate normal compressibility, augmentation, and color Doppler. The posterior tibial veins are patent. No saphenous vein thrombosis or other superfi cial venous thrombosis is seen. A 6 x 10 x 8 millimeter low-density collection is noted in the regio n of the popliteal fossa. Findings could represent a small Call's cyst versus small hematoma. IMPRESSION: Question small Call's cyst. No evidence of DVT. DATA REPOSITORY:
--- NOTE | 2021-08-22 07:45 | DI.RAD_ITS ---
Exam(s) XR KNEE LT 3V AP,LAT,MARCOS EXAM: XR KNEE LT 3V AP,LAT,MARCOS CLINICAL HISTORY: left knee pain after falling,m25.562. TECHNIQUE: 2D digital imaging was performed. COMPARISON: CR XR KNEE LT 3V AP,LAT,MARCOS from 07/04/2020 FINDINGS: No evidence of fracture or joint effusion. The joint spaces are well maintained. There is mild rylee articular spurring. Chondrocalcinosis is noted. Vascular calcifications are present. IMPRESSION: Chondrocalcinosis and mild degenerative changes. DATA REPOSITORY: RADIATION DOSE DELIVERED:
--- NOTE | 2021-08-22 07:45 | DI.RAD_ITS ---
Exam(s) XR CERVICAL SPINE COMP 4-5V EXAM: XR CERVICAL SPINE COMP 4-5V CLINICAL HISTORY: neck pain on right,s/p fall m54.2. TECHNIQUE: 2D digital imaging was performed. COMPARISON: CR RIGHT FOOT COMPLETE from 02/08/2015 CR CERV SP.WITH OBL OR FLEX/EXT from 02/08/2015 FINDINGS: There is severe narrowing of the C4-5, C5-6 and C7 disc spaces. There are severe degenerative change s of the uncovertebral joints and facet joints causing multilevel neural foraminal narrowing, greater on the right.. Findings are not significantly changed from 2015. There is no evidence of fracture or subluxation IMPRESSION: Stable severe degenerative changes. DATA REPOSITORY: RADIATION DOSE DELIVERED:
== END 2021-08-22 01:28 ==
PROVIDERS: PCP Family Medicine; Visit Provider Family Medicine
DX: M25.562 Pain in left knee (principal); M17.12 Unilateral primary osteoarthritis, left knee; M11.262 Other chondrocalcinosis, left knee; M71.22 Synovial cyst of popliteal space [Baker], left knee; M50.321 Other cervical disc degeneration at C4-C5 level; M50.322 Other cervical disc degeneration at C5-C6 level; M50.323 Other cervical disc degeneration at C6-C7 level
CPT/HCPCS: 73562; 72050; 93971

== ENCOUNTER → 2021-10-17 00:33 | Outpatient (CLI) | payer MEDICARE, OTHER, SELFPAY ==
--- NOTE | 2021-10-17 06:49 | DI.CT_ITS ---
Exam(s) CT CHEST/ABD/PEL W EXAM: CT CHEST/ABD/PEL W CLINICAL HISTORY: severe epigastric pain,ABD PAIN,R10.9,R10.13 TECHNIQUE: CT examination of the chest, abdomen, and pelvis was performed with intravenous infusion of 100 cc of Omnipaque 350. COMPARISON: CT CT CHEST PE CTA from 08/05/2020 FINDINGS: There are severe central lobular pulmonary emphysematous changes and there are predominantly peripher al reticular changes which appear chronic consistent with fibrosis. There are coronary artery calcifications.. There is no pleural effusion seen. There is no mediastinal or hilar adenopathy. Pulmonary arteries are unremarkable with no evidence of pulmonary embolic disease. Thoracic aorta and major branches show no evidence of aneurysm or dissection. There are are extensiv e wall calcifications of all visualized vessels. No bony abnormality seen in the thorax. The liver is normal appearance. Gallbladder and bile ducts are CT normal. No abnormality seen involving the spleen apart from a few small calcifications consistent with healed granulomatous disease.. Pancreas appears intact. The adrenals are unremarkable in appearance. The right kidney has a thinned cortex and some probable focal cortical scarring, there is no right hy dronephrosis or nephrolithiasis. The right renal artery origin is a heavily calcified and there is p robably high-grade right renal artery stenosis. Left renal artery is also heavily calcified at the origin and there may be a significant left renal a rtery stenosis. Left renal cortex appears well preserved with a few incidental cysts. No hydronephr osis or nephrolithiasis.. Abdominal aorta and major visceral branches show heavy wall calcification, there is a left aortoiliac graft and an a patent it iliac iliac graft period. There is mild calcification of the origins of ce liac trunk and superior mesenteric artery without evidence of significant stenosis. No significant abdominal wall hernia seen. No significant abdominal or pelvic adenopathy. No focal bowel pathology. No evidence of appendicitis or diverticulitis. IMPRESSION: No evidence of acute process. Severe COPD and extensive vascular disease noted. RADIATION DOSE DELIVERED: 1,053.34mGy.cm Total DLP 1,053.34mGy.cm Total DLP !Error CTDIvol
[2021-10-17] MEDS: Breeza Beverage 473 ML BTL PO ×2 (12:58→13:01)
[2021-10-17] MEDS: Omnipaque 350 MG/ML 50 ML BTL PO (13:00)
[2021-10-17 13:01] LABS: HCT 39.7 % (36.0-46.0); HGB 13.1 g/dL (11.2-15.7); MCH 26.7 pg (27.0-33.0); MCV 80.9 fL (80-95); MPV 9.5 fL (8.0-11.0); Platelet Count 277 10^3/uL (130-400); RBC 4.91 10^6/uL (3.93-5.22); RDW 14.7 % (11.7-14.6); RDW-SD 43.4 fL; WBC 6.87 10^3/uL (4.4-10.8)
[2021-10-17 13:25] LABS: ALT 22 U/L (14-59); AST 12 U/L (15-37); Albumin 4.3 g/dL (3.4-5.0); Alkaline Phosphatase 59 U/L (46-116); Anion Gap 9.3 mmol/L (3-11); BUN 10 mg/dL (7-18); Bilirubin, Total 0.9 mg/dL (0.2-1.0); CO2 29.7 mmol/L (21.0-32.0); CREATININE 0.9 mg/dL (0.55-1.02); Calcium 9.4 mg/dL (8.5-10.1); Chloride 98 mmol/L (98-107); Glucose 104 mg/dL (74-106); Lipase 69 U/L (73-393); Potassium 3.3 mmol/L (3.5-5.1); Sodium 137 mmol/L (136-145); TSH (W/Ref FT4) 3.89 uIU/mL (0.36-3.74); Total Protein 7.7 g/dL (6.4-8.2)
[2021-10-17 13:43] LABS: FREE T4 0.87 ng/dL (0.76-1.46)
[2021-10-17] MEDS: Omnipaque 350 MG/ML 100 ML BTL IV (14:15)
[2021-10-17] MEDS: Normal Saline Flush 10 ML SYR IVP (14:17)
== END ==
PROVIDERS: PCP Family Medicine; Visit Provider Family Medicine
DX: R10.9 Unspecified abdominal pain (principal); J44.9 Chronic obstructive pulmonary disease, unspecified; E78.5 Hyperlipidemia, unspecified
CPT/HCPCS: 74177; 80053; 83690; 85027; 71260; 84439; 84443; J3490; Q9967

== ENCOUNTER → 2021-11-06 01:06 | Outpatient (CLI) | payer MEDICARE, OTHER, SELFPAY ==
--- NOTE | 2021-11-06 07:45 | DI.CT_ITS ---
Exam(s) CT ABDOMEN PELVIS CTA EXAM: CT ABDOMEN PELVIS CTA CLINICAL HISTORY: ? mesenteric occlusion,abd epigastric pain,r10.9,r10.13. TECHNIQUE: Imaging Protocol: Axial CT angiography was performed with multi-slice acquisition and m ulti-planar and/or 3D reconstructions. CONTRAST MATERIAL: Intravenous: Omnipaque 350 Contrast volume:80mL Oral: No COMPARISON: CT CT CHEST/ABD/PEL W from 10/17/2021 FINDINGS: ABDOMEN AND PELVIS: Abdomen: Celiac axis/mesenteric arteries: No evidence of occlusion or significant stenosis. Renal Arteries: No evidence of occlusion. There does appear to be greater than 50 percent stenosis a t the origins of both renal arteries. There is marked atherosclerosis at the origins of both renal a rteries. Aorta: No evidence of occlusion or significant stenosis. There is extensive atherosclerosis. No ane urysm or dissection. The patient has a aorto bi-iliac stent. The patient also has a bi femoral bypas s. These are patent. Pelvis: Iliac Arteries: There is marked atherosclerosis and marked stenosis/occlusion of the right common an d external iliac arteries. There is marked calcification of the internal iliac arteries bilaterally. Common Femoral Arteries: No evidence of occlusion. Atherosclerosis. ABDOMEN: Lung bases: Coronary artery calcification is present. Liver: Normal density. No measurable mass. Portal, Superior Mesenteric, and Splenic Veins: Unremarkable. Gallbladder and Biliary Tract: No radiodense calculus or dilation. Pancreas: Normal density, no abnormal calcifications or inflammatory process. Spleen: Calcified granuloma are seen in the spleen. Adrenals: No masses seen. Kidneys: Normal size, contour and axis. No radiodense stones or obstructive uropathy. Small bilateral simple renal cysts. No follow-up is recommended. The largest measures 1.9 cm and is located in the superior pole of the left kidney. Bowel: No obstruction or bowel wall thickening. No evidence of appendicitis. Mild diverticulosis is seen in the colon but no evidence of acute diverticulitis. Peritoneal Cavity: No ascites, collection or mesenteric inflammatory response. No free air. Lymph Nodes: Within normal limits. Bones: Within normal limits for the patient's age. 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 Soft Tissues: Unremarkable. PELVIS: Bladder: Symmetric distention, no gross wall thickening. Reproductive Organs: The patient appears to be status post hysterectomy. Lymph Nodes: Within normal limits. Bones: Within normal limits. IMPRESSION: 1. No evidence of mesenteric artery or vein occlusion or significant stenosis. 2. Extensive atherosclerosis as described above. Aorta iliac stent and by femoral artery bypass. 3. No acute abdominal or pelvic process. RADIATION DOSE DELIVERED: 1,453.79mGy.cm Total DLP DATA REPOSITORY: All CT scans at this facility are submitted to the National Radiology Data Registry (NRDR) Dose Index Registry (DIR) with the [employer] (ACR). RADIATION OPTIMIZATION: All CT scans at this facility use at least one of these dose optimization te chniques: automated exposure control; mA and/or kV adjustment per patient size (includes targeted exa ms where dose is matched to clinical indication); or iterative reconstruction.
[2021-11-06] MEDS: Omnipaque 350 MG/ML 100 ML BTL 80 ML IJ (11:36)
== END ==
PROVIDERS: PCP Family Medicine; Visit Provider Family Medicine
DX: R10.13 Epigastric pain (principal); R10.9 Unspecified abdominal pain; I70.1 Atherosclerosis of renal artery; N28.1 Cyst of kidney, acquired; Z95.828 Presence of other vascular implants and grafts; Z95.820 Peripheral vascular angioplasty status with implants and grafts
CPT/HCPCS: 74174; J3490

== ENCOUNTER 2022-01-12 14:56 | Outpatient (REF) | payer MEDICARE, SELFPAY ==
[2022-01-12 21:42] LABS: *AMPHETAMINES SCREEN URINE Negative (Negative); *BARBITURATES SCREEN URINE Negative (Negative); *BENZODIAZEPINES SCREEN URINE Positive (Negative); Cannabinoids THC Negative (Negative); Cocaine Screen,Urine Negative (Negative); METHADONE URINE SCREEN Negative (Negative); OPIATES URINE SCREEN Negative (Negative)
[2022-01-12 21:44] LABS: Tricyclic Antidepressants Positive (Negative)
== END 2022-01-12 14:57 | disposition home or self-care (01) ==
LOC: LBN 14:56
PROVIDERS: PCP Family Medicine; Visit Provider Family Medicine
DX: G89.4 Chronic pain syndrome (principal); Z79.891 Long term (current) use of opiate analgesic; R82.5 Elevated urine levels of drugs, medicaments and biological substances
CPT/HCPCS: 80307

== ENCOUNTER → 2022-02-25 02:00 | Outpatient (CLI) | payer MEDICARE, SELFPAY ==
--- NOTE | 2022-02-25 07:45 | DI.RAD_ITS ---
Exam(s) XR WRIST RT COMPL NAVICULAR EXAM: XR WRIST RT COMPL NAVICULAR CLINICAL HISTORY: fall on right wrist, pain, M25.531. TECHNIQUE: 2D digital imaging was performed of the right wrist. Four views were obtained. Scaphoid, PA, lateral and oblique views were obtained. COMPARISON: No exams were available for comparison FINDINGS: BONES: No acute fracture is present. No bony destructive lesion is seen. There is an oblique lucency in the mid metaphysis of the distal radius. There is also question of disruption of the cortex of th e distal radial metaphysis medially. JOINTS: The carpal bones are normally aligned. There are mild degenerative changes in the wrist. SOFT TISSUE: There is chondrocalcinosis of the TFCC. IMPRESSION: Question of a nondisplaced fracture involving the medial aspect of the distal radial metaphysis. In this patient, a CT scan of the wrist should be obtained to confirm this finding. DATA REPOSITORY: RADIATION DOSE DELIVERED:
--- NOTE | 2022-02-25 07:45 | DI.MRI_ITS ---
Exam(s) MR LOWER JOINT LT WO EXAM: MR LOWER JOINT LT WO CLINICAL HISTORY: l knee - failed PT and time; unstable, internal derangment, M23.90. TECHNIQUE: Multiplanar multisequence MRI was performed. COMPARISON: CR XR KNEE LT 3V AP,LAT,MARCOS from 08/22/2021 FINDINGS: BONES: There is no fracture or contusion pattern. JOINTS: Articular cartilage is unremarkable. There does appear to be a small joint effusion. TENDONS: Extensor mechanism: Unremarkable. Medial retinaculum: Unremarkable. Lateral retinaculum: Unremarkable. Popliteus: Unremarkable. MUSCLES: Unremarkable. MENISCI: There is degenerative signal seen in the body of the lateral meniscus. There is linear sign al seen in the body and posterior horn of the medial meniscus. This signal does shows hyperintense s ignal on the T2 weighted images suspicious for a tear. SOFT TISSUES: Unremarkable. LIGAMENTS: Anterior Cruciate: Unremarkable. Posterior Cruciate: Unremarkable. Medial Collateral:Unremarkable. Lateral Collateral: Unremarkable. OTHER: IMPRESSION: 1. Findings suspicious for tear of the body of the medial meniscus. 2. No evidence of a ligament tear. DATA REPOSITORY:
== END ==
PROVIDERS: PCP Family Medicine; Visit Provider Family Medicine
DX: M25.531 Pain in right wrist (principal); M23.92 Unspecified internal derangement of left knee; G89.11 Acute pain due to trauma; W19.XXXA Unspecified fall, initial encounter
CPT/HCPCS: 73721; 73110

== ENCOUNTER → 2022-03-19 02:17 | Outpatient (CLI) | payer MEDICARE, SELFPAY ==
--- NOTE | 2022-03-19 07:15 | DI.CT_ITS ---
Exam(s) CT UPPER EXTREMITY RT WO EXAM: CT UPPER EXTREMITY RT WO CLINICAL HISTORY: f/u abnl xray, rt wrist pain, m25.531 TECHNIQUE: Imaging Protocol: Axial computed tomography images with coronal and sagittal reformatted images were created and reviewed. CONTRAST MATERIAL: Noncontrast COMPARISON: CT RIGHT LOWER EXTREM W CONTRAST from 09/27/2016 CR XR WRIST RT COMPL NAVICULAR from 02/25/2022 FINDINGS: There is no evidence of an acute fracture. There is mild deformity of the distal radius consistent w ith an old healed fracture. Old fractures are also noted in the 3rd and 4th metacarpal shafts. Bone s appear osteopenic. Chondrocalcinosis is noted at the triangular fibrocartilage. The carpal alignm ent appears normal. There are mild underlying degenerative changes, greatest at the radial carpal elver int. IMPRESSION: No evidence of acute fracture. Findings consistent with old fracture deformity of the distal radius and 3rd and 4th metacarpal shafts. RADIATION DOSE DELIVERED: 112.99mGy.cm Total DLP DATA REPOSITORY: All CT scans at this facility are submitted to the National Radiology Data Registry (NRDR) Dose Index Registry (DIR) with the [employer] (ACR). RADIATION OPTIMIZATION: All CT scans at this facility use at least one of these dose optimization te chniques: automated exposure control; mA and/or kV adjustment per patient size (includes targeted exa ms where dose is matched to clinical indication); or iterative reconstruction.
== END ==
PROVIDERS: PCP Family Medicine; Visit Provider Family Medicine
DX: M21.831 Other specified acquired deformities of right forearm (principal)
CPT/HCPCS: 73200

== ENCOUNTER 2022-08-20 03:33 | Outpatient (CLI) | payer OTHER, MEDICARE, SELFPAY ==
--- NOTE | 2022-08-20 07:45 | DI.CT_ITS ---
Exam(s) CT ABDOMEN PELVIS CTA EXAM: CT ABDOMEN PELVIS CTA CLINICAL HISTORY: chronic intense abdominal pain; calcified aorta,k55.059. TECHNIQUE: Imaging Protocol: Axial computed tomography images with coronal and sagittal reformatted images were created and reviewed CONTRAST MATERIAL: Intravenous: Omnipaque 350 Contrast volume:100 ml Oral: None COMPARISON: CT CT ABDOMEN PELVIS CTA from 11/06/2021 FINDINGS: ABDOMEN: AORTA: The abdominal aorta is again noted be atherosclerotic. 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 There is a stent in the left iliac arteries and there is a left to right patent fem-fem bypass graft evident.There is no aneurysmal dilatation of the common iliac arteries.The superior mes enteric artery is patent with no no significant stenosis at its origin. No significant stenosis more distally in this vessel and no intraluminal emboli in the SMA. 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 Calcified plaque noted at the origins of both renal arteries which exhibit significant disease. Kidneys exhibit thin cortices bilaterally. Distally the inferior mesen teric artery is patent. There are no ischemic appearing bowel loops and there is no ascites. LIVER: There are no focal hepatic lesions nor dilatation of intrahepatic ducts. GALLBLADDER/BILIARY: No obvious gallbladder pathology. CBD is not dilated. PANCREAS: No evidence of pancreatic mass nor dilatation of the pancreatic duct. SPLEEN: Splenic granulomas noted. Spleen size normal. Splenic and portal veins are patent. ADRENALS: There are no significant adrenal masses. KIDNEYS: There is a cyst in the superior pole of left kidney which measures 1.5 x 1.5 cm. No solid r enal masses. No hydronephrosis. Thinning of both renal cortices is noted which is probably related to the atherosclerotic involvement of the renal arteries.. ABDOMINAL AORTA: As above LYMPH NODES: There is no retroperitoneal nor para-aortic adenopathy. No obvious mesenteric masses. ABDOMINAL WALL: No evidence of significant anterior abdominal wall hernia. GI: There is no evidence of bowel obstruction, free air, nor abscess.There are no edematous bowel loo ps. No pneumatosis evident. Abundant fecal material is noted throughout the colon. PELVIS: LYMPH NODES: There is no intrapelvic nor inguinal adenopathy. GI: No evidence of appendicitis.No evidence of sigmoid diverticulitis. URINARY BLADDER: No calculi nor masses evident REPRODUCTIVE: Uterus surgically absent. No abnormal adnexal masses. OSSEOUS: Anterolisthesis L5 upon S1 due to bilateral pars defects at L5 level. There is of the also advanced disc space narrowing at L4-5 and L5-S1 levels. IMPRESSION: 1. 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 There is a left i liac Gortex graft and there is a left to right fem-fem bypass graft. Proximal SFA arteries are paten t bilaterally. 2. Stenosis at the origin of the celiac artery but the no stenosis at the level of the superior mesen teric artery and the inferior mesenteric artery is patent. There are no obvious ischemic appearing b owel loops. 3. Heavily calcified plaque at the origin of the renal arteries, consistent with renal artery stenosi s and the this appears to be more prominent on the right side. Right kidney is smaller in size than the left. Benign cysts in the superior and inferior pole of the left kidney noted. No solid renal m asses. 4. There is abundant fecal material noted throughout the colon. There is, however, no fecalization o f small bowel loops seen. No evidence of small-bowel obstruction. RADIATION DOSE DELIVERED: 1,428.27mGy.cm Total DLP DATA REPOSITORY: All CT scans at this facility are submitted to the National Radiology Data Registry (NRDR) Dose Index Registry (DIR) with the [employer] (ACR). RADIATION OPTIMIZATION: All CT scans at this facility use at least one of these dose optimization te chniques: automated exposure control; mA and/or kV adjustment per patient size (includes targeted exa ms where dose is matched to clinical indication); or iterative reconstruction.
[2022-08-20 13:34] LABS: Estimated GFR 58.02 (mL/min/1.73m2)
[2022-08-20] MEDS: Normal Saline Flush 10 ML SYR IVP (14:19)
[2022-08-20] MEDS: Omnipaque 350 MG/ML 100 ML BTL IJ (14:20)
== END 2022-08-20 03:53 ==
LOC: DI 03:33
PROVIDERS: PCP Family Medicine; Visit Provider Family Medicine
DX: K55.059 Acute (reversible) ischemia of intestine, part and extent unspecified (principal); Z01.812 Encounter for preprocedural laboratory examination; R10.84 Generalized abdominal pain; N28.1 Cyst of kidney, acquired; I70.1 Atherosclerosis of renal artery; Z95.820 Peripheral vascular angioplasty status with implants and grafts
CPT/HCPCS: 74174; 82565; J3490

== ENCOUNTER 2022-09-28 11:21 | Outpatient (CLI) | payer OTHER, MEDICARE, SELFPAY ==
[2022-09-28 12:45] LABS: HCT 40.7 % (36.0-46.0); HGB 13.6 g/dL (11.2-15.7); MCH 27.2 pg (27.0-33.0); MCHC 33.4 % (32.0-36.0); MCV 81 fL (80-95); MPV 10.2 fL (8.0-11.0); Platelet Count 240 10^3/uL (130-400); RDW 15.3 % (11.7-14.6); RDW-SD 45.3 fL; WBC 7.58 10^3/uL (4.4-10.8)
[2022-09-28 13:09] LABS: ALT 14 U/L (14-59); AST 18 U/L (15-37); Albumin 4.1 g/dL (3.4-5.0); Alkaline Phosphatase 58 U/L (46-116); Anion Gap 8.8 mmol/L (3-11); BUN 8 mg/dL (7-18); Bilirubin, Total 0.6 mg/dL (0.2-1.0); CO2 30.2 mmol/L (21.0-32.0); Calcium 9.7 mg/dL (8.5-10.1); Chloride 97 mmol/L (98-107); Estimated GFR 58.02 (mL/min/1.73m2); Glucose 104 mg/dL (74-106); Potassium 3.8 mmol/L (3.5-5.1); Sodium 136 mmol/L (136-145); TSH (W/Ref FT4) 5.22 uIU/mL (0.36-3.74); Total Protein 7.5 g/dL (6.4-8.2)
[2022-09-28 13:31] LABS: FREE T4 0.77 ng/dL (0.76-1.46)
== END 2022-09-28 11:22 | disposition home or self-care (01) ==
LOC: LOS 11:21
PROVIDERS: PCP Family Medicine; Referring Provider Family Medicine; Visit Provider Family Medicine
DX: D64.9 Anemia, unspecified (principal); R63.4 Abnormal weight loss; K29.60 Other gastritis without bleeding; U07.1 COVID-19
CPT/HCPCS: 36415; 80053; 85027; 84439; 84443

== ENCOUNTER 2022-11-30 03:39 | Outpatient (CLI) | payer OTHER, MEDICARE, SELFPAY ==
--- NOTE | 2022-11-30 07:45 | DI.CT_ITS ---
Exam(s) CT CHEST WO EXAM: CT CHEST WO CLINICAL HISTORY: cough,R05.9. TECHNIQUE: Imaging protocol: Axial computed tomography images were obtained and coronal and sagittal reformatted images were created and reviewed. COMPARISON: CT CT CHEST/ABD/PEL W from 10/17/2021 FINDINGS: Tracheobronchial tree: Patent where visualized. Pulmonary parenchyma: Moderately severe centrilobular emphysematous changes are present. Calcified g ranuloma are present. There are fibrotic chronic changes seen in the right lower lobe medially. No focal consolidating infiltrates are seen. Mediastinum and Janice: Stable mildly enlarged lymph nodes are seen in the mediastinum. The esophagus is unremarkable.Small hiatal hernia. Thyroid gland: Unremarkable. Pleura: No effusion or pneumothorax. Heart: The heart is not dilated. Coronary artery calcification is present. No pericardial effusion. Aorta: Thoracic aorta non-dilated. Atherosclerosis. Upper abdomen: Calcified granuloma are seen in the liver and spleen. Lymph nodes: Within normal limits. Soft tissues: Unremarkable. Bones:Within normal limits for the patient's age. IMPRESSION: 1. No focal consolidating infiltrates. 2. Centrilobular emphysema and pulmonary fibrosis. RADIATION DOSE DELIVERED: 412.18mGy.cm Total DLP 412.18mGy.cm Total DLP DATA REPOSITORY: All CT scans at this facility are submitted to the National Radiology Data Registry (NRDR) Dose Index Registry (DIR) with the [employer] (ACR). RADIATION OPTIMIZATION: All CT scans at this facility use at least one of these dose optimization te chniques: automated exposure control; mA and/or kV adjustment per patient size (includes targeted exa ms where dose is matched to clinical indication); or iterative reconstruction.
== END 2022-11-30 03:59 ==
LOC: DI 03:43
PROVIDERS: PCP Family Medicine; Visit Provider Family Medicine
DX: R05.9 Cough, unspecified (principal)
CPT/HCPCS: 71250

== ENCOUNTER 2022-12-11 02:02 | Outpatient (CLI) | payer OTHER, SELFPAY ==
[2022-12-11] MEDS: Albuterol HFA 18 GM 200 PUFF INH IH (14:32)
[2022-12-11] MEDS: Inhaler, Assist Device 1 EACH MC (14:34)
--- NOTE | 2022-12-11 16:10 | W.PFT ---
Date of service: 12/11/22 Time of Service: 13:04 Pulmonary Function Test Result Indications: COPD Interpretation Spirometry: There is mild airflow limitation. There is no significant bronchodilator response. Lung Volumes: There is hyperinflation and air trapping. Diffusion Capacity: There is a decreased difusion. Airway Pressure: There is increased airways resistance. Impression Mild airflow obstruction with air trapping and a decreased diffusion. This could be consistent with COPD with emphysema. Note: When compared to 2012, the obstruction has improved, but the remainder of the findings are unchanged. Clinical Correlation therefore is recommended.
== END 2022-12-11 02:03 | disposition home or self-care (01) ==
LOC: RT 02:02
PROVIDERS: PCP Family Medicine; Visit Provider Family Medicine
DX: J84.10 Pulmonary fibrosis, unspecified (principal); J44.9 Chronic obstructive pulmonary disease, unspecified
CPT/HCPCS: 94060; 94726; 94729

== ENCOUNTER 2023-02-26 01:49 | Outpatient (CLI) | payer OTHER, SELFPAY ==
[2023-02-26 12:43] LABS: TSH (W/Ref FT4) 2.21 uIU/mL (0.36-3.74)
== END 2023-02-26 01:50 | disposition home or self-care (01) ==
LOC: LOS 01:49
PROVIDERS: PCP Family Medicine; Visit Provider Family Medicine
DX: E03.9 Hypothyroidism, unspecified (principal)
CPT/HCPCS: 36415; 84443

== ENCOUNTER → 2023-03-17 01:38 | Outpatient (CLI) | payer OTHER, SELFPAY ==
--- NOTE | 2023-03-17 14:00 | DI.US_ITS ---
APPROVED REPORT EXAM: Comprehensive 2D, Doppler, and color-flow Echocardiogram Patient Location: Out-Patient Servicing Rep: Nilda Plata RDCS ([place]) Indications: Valvular disease, rheumatic disease of mitral valve Conclusion Exam was terminated due to sudden elevation in heart rate. Patient was escorted to the ER Within the limits of the study, left ventricular wall thickness chamber size and ejection fraction ap peared normal Aortic valve is sclerotic and trileaflet Mitral valve was not well visualized Wall motion Great Vessels The aortic root is normal in size. 2D Dimensions IVSD d PLAX 0.77 cm F: 0.6-1.0 LVPW d PLAX 0.83 cm F: 0.6 - 1.0 LVID d PLAX 4.47 cm F: 3.8 - 5.2 LVDs 3.20 cm F: 2.2 - 3.5 Ao Root d 2.81 cm F: 2.7 - 3.3 LV EF Teichholz 54.8 % FS 28.25 % Aortic Valve LVOT Diam s 1.95 cm Tricuspid Valve TR Peak Grad 33.8 mmHg
== END ==
PROVIDERS: PCP Family Medicine; Visit Provider Family Medicine
DX: I05.9 Rheumatic mitral valve disease, unspecified (principal)
CPT/HCPCS: 93306

== ENCOUNTER 2023-03-17 14:27 | Observation (INO) | payer OTHER, SELFPAY ==
[2023-03-17] VITALS (56 sets, daily range): BP systolic 113–155; BP diastolic 62–120; PULSE 61–141; RESP 10–26; TEMP 36.5–36.8; O2SAT 81–94
--- NOTE | 2023-03-17 14:30 | RT.EKG_ITS ---
APPROVED REPORT Exam: Resting ECG Reason for Exam: tachycardia Patient Location: E HR:137 bpm ECG Measurements Heart Rate 137 AXIS MS 159 P 13 QRSd 97 QRS -7 QT 266 T 195 QTc 401 Conclusion Sinus tachycardia...rate> 99 Inferior infarct, old...Q >35mS, II III aVF Repolarization abnormality, prob rate related MS and QTc within normal limits. ST segment depression s V3 V4 and V5. No ST segment elevations. ST dep, T neg, tachycardia Narrow complex sinus tachycardia at a rate of 137. Left axis deviation no signs of LVH based on volt age. ST segment depressions V3 and V4. No ST segment elevations. T wave inversion in aVL. Compare d to prior dated 2017 sinus tachycardia is new.
--- NOTE | 2023-03-17 14:30 | DI.RAD_ITS ---
Exam(s) XR CHEST 2V PA LATERAL EXAM: XR CHEST 2V PA LATERAL CLINICAL HISTORY: Tachycardia, Hypoxia TECHNIQUE: 2D digital imaging was performed. COMPARISON: CR XR CHEST 2V PA LATERAL from 10/31/[address] CHEST WO from 11/30/2022 FINDINGS: Leads overlie the chest. HEART: Normal size. Aorta: Not dilated. PULMONARY VASCULATURE: Normal. LUNGS: Emphysematous and fibrotic changes. No superimposed infiltrate PLEURAL SPACE: No pleural effusion or pneumothorax. BONE:Unremarkable for age. IMPRESSION: No acute abnormality. DATA REPOSITORY: RADIATION DOSE DELIVERED:
[2023-03-17 14:49] LABS: Abs Immature Grans 0.01 10^3/uL (0.0-0.06); Absolute Basophil Count 0.06 10^3/uL (0.0-0.2); Absolute Eosinophil Count 0.36 10^3/uL (0.0-0.7); Absolute Lymphocyte Count 1.08 10^3/uL (1.2-3.4); Absolute Monocyte Count 0.59 10^3/uL (0.1-0.8); Absolute Neutrophil Count 2.58 10^3/uL (1.2-6.7); Basophils % 1.3; Eosinophils % 7.7; HCT 42.8 % (36.0-46.0); HGB 14.2 g/dL (11.2-15.7); Immature Grans % 0.2; Lymphocytes % 23.1; MCH 26.9 pg (27.0-33.0); MCHC 33.2 % (32.0-36.0); MCV 81 fL (80-95); MPV 9.8 fL (8.0-11.0); Monocytes % 12.6; Neutrophils % 55.1; Platelet Count 214 10^3/uL (130-400); RBC 5.28 10^6/uL (3.93-5.22); RDW 13.7 % (11.7-14.6); RDW-SD 39.8 fL; WBC 4.68 10^3/uL (4.4-10.8)
[2023-03-17] MEDS: Normal Saline 500 ML IV (14:54)
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
--- NOTE | 2023-03-17 15:00 | RT.EKG_ITS ---
APPROVED REPORT Exam: Resting ECG Reason for Exam: Repeat Patient Location: E HR:81 bpm ECG Measurements Heart Rate 81 AXIS ID 160 P 49 QRSd 96 QRS -3 QT 385 T 21 QTc 448 Conclusion Sinus rhythm...normal P axis, V-rate 60- 99 Ventricular premature complex...V complex w/ short R-R interval LAD, 1 PVC, no stemi. Previous EKG was much faster rate.
[2023-03-17 15:18] LABS: ALT 14 U/L (14-59); AST 18 U/L (15-37); Albumin 4.1 g/dL (3.4-5.0); Alkaline Phosphatase 59 U/L (46-116); Anion Gap 8.2 mmol/L (3-11); BUN 10 mg/dL (7-18); Bilirubin, Total 0.8 mg/dL (0.2-1.0); CO2 30.8 mmol/L (21.0-32.0); CREATININE 0.9 mg/dL (0.55-1.02); Calcium 9.6 mg/dL (8.5-10.1); Chloride 100 mmol/L (98-107); Estimated GFR 65.84 (mL/min/1.73m2); Glucose 106 mg/dL (74-106); Magnesium 1.8 mg/dL (1.8-2.4); Potassium 3.6 mmol/L (3.5-5.1); Sodium 139 mmol/L (136-145); TSH (W/Ref FT4) 3.04 uIU/mL (0.36-3.74); Total Protein 7.7 g/dL (6.4-8.2); Troponin I < 50 ng/L (<or=60)
[2023-03-17 15:39] LABS: Lactate 1.1 mmol/L (0.6-1.4)
[2023-03-17 15:48] LABS: NT-proBNP 215 pg/mL (<300)
--- NOTE | 2023-03-17 16:11 | ED.PROG_ITS ---
Date of service: 03/17/23 Time of Service: 15:30 Medical Decision Making This is a 77-year-old female brought in from radiology where she was having an echocardiogram for rheumatic mitral valve disease. I have spoken with the instrument processing tech who said she was only able to do a few images before the patient went into a narrow complex tachycardia with a rate of 135 at maximum. Medical Records Medical records reviewed: Yes I reviewed the patient's medical records. Imaging Data Radiologic Study: Imaging: X-Ray Radiologist's impression: Per radiology impression: No acute abnormality.? Radiologic Study #2: Imaging: CT Scan (CTA chest) Radiologist's impression: Impression: 1. No evidence of obvious acute pulmonary emboli. 2. There is a significant infiltrate in the right upper lobe. No pleural effusions. Lab Data Lab results reviewed: Yes I reviewed the patient's lab results. Lab results narrative: Normal troponin, unremarkable electrolytes, normal troponin ECG Data Attestation: I personally reviewed and interpreted this ECG (s) as follows: Prior ECG tracings: available for review Exam Narrative Exam Narrative: The patient is occasionally coughing it sounds productive but she is not bringing anything up. Posteriorly I cannot appreciate any wheezing but she did have occasional wheezing when listening anteriorly. I could not appreciate any murmur rub or gallop. Narrative I have received signout. I have seen and examined the patient. She was brought into the emergency department from radiology. During an echocardiogram she had a narrow complex tachycardic rhythm which could have been flutter with 2-1 block or SVT. It does not appear to be sinus tachycardia. The patient was asymptomatic. She has a history of COPD. Currently she is satting at 80% on 3- 1/2 L. She tells me she has had a cough since October and also had COVID this spring. She has seen a oil well service operator who she told me listen to her lungs and prescribed an inhaler. She also tells me she used to take metoprolol but is not sure why it was discontinued. She is currently only on amlodipine. She has metoprolol listed as an allergy that causes swelling so I will hold off giving her any p.o. metoprolol since she is in a sinus rhythm. I have advised the patient that she is hypoxic and needs to be admitted because it is not safe to send her home since she does not have supplemental oxygen and her sats are below normal on 3 and half liters. She is reluctant to stay. We are still awaiting her labs and chest x-ray. Her chest x-ray shows no acute disease. I have spoken with the hospitalist who requested that we get a CTA to rule out PE. We have ordered the patient dinner and I will call the hospitalist back with the results of the CT Sign Out Sign Out Data: Sign Out Comment: Pending most likely admission, presents with tachycardia while getting a outpatient echocardiogram. BNP is pending, chest x-ray is pending at this time. Last updated by Argenis Rosa NP at 03/17/23 15:43 Discharge Plan Disposition Patient Disposition: Admit to [facility] Discharge Details Clinical Impression: Arrhythmia, Pneumonia, Hypoxemia Admit Date/Time: 03/17/23 20:15 Admit Provider: Pietro De La Garza Attending Provider: Pietro De La Garza Primary Care Provider: Viki Loera ED Provider: Dahiana Law Discharge Data Discharge Physician: Dahiana Law
--- NOTE | 2023-03-17 16:45 | DI.CT_ITS ---
Exam(s) CT CHEST PE CTA EXAM: CT CHEST PE CTA CLINICAL HISTORY: rule out PE. TECHNIQUE: Imaging Protocol: CT angiography of the chest was performed using pulmonary embolus kevin col. Multi planar reconstructions were performed. CONTRAST MATERIAL: Intravenous: Omnipaque 350 Contrast volume: 100 cc COMPARISON: CT CT CHEST WO from 11/30/2022 CR XR CHEST 2V PA LATERAL from 03/17/2023 FINDINGS: CHEST: PULMONARY ARTERIES: There are no obvious intraluminal filling defects to suggest acute pulmonary embo li. LUNGS: There is infiltrate in the posterior segment of the right upper lobe which has significantly i ncreased when compared to prior CT scan of 11/30/2022. Mild increased markings in the medial right l ower lobe are unchanged. Mild increased markings-mild infiltrate noted in the posterior basal segmen t of the left lower lobe. There are no pleural effusions. Density is noted in the posterior trachea but this is probably exaggerated from motion artifact.. MEDIASTINUM: There is no hilar nor mediastinal adenopathy. CARDIAC: Heart size is upper normal. There is no pericardial effusion.Thoracic aorta is atherosclero tic. Ascending thoracic aorta diameter is upper normal. No dissection evident. There is no signif icant shift of the interventricular septum. PARTIALLY VISUALIZED UPPERMOST ABDOMEN: No obvious findings OSSEOUS: No significant osseous lesions.No fractures.. IMPRESSION: 1. No evidence of obvious acute pulmonary emboli. 2. There is significant infiltrate in the right upper lobe. No pleural effusions. Called to ER physician. RADIATION DOSE DELIVERED: 395.92mGy.cm Total DLP DATA REPOSITORY: All CT scans at this facility are submitted to the National Radiology Data Registry (NRDR) Dose Index Registry (DIR) with the [employer] ([employer]). RADIATION OPTIMIZATION: All CT scans at this facility use at least one of these dose optimization te chniques: automated exposure control; mA and/or kV adjustment per patient size (includes targeted exa ms where dose is matched to clinical indication); or iterative reconstruction.
[2023-03-17] MEDS: Normal Saline - Diluent 50 ML VIAL IJ (17:41)
[2023-03-17] MEDS: Omnipaque 350 MG/ML 100 ML BTL IJ (17:41)
[2023-03-17 18:33] LABS: Troponin I < 50 ng/L (<or=60)
[2023-03-17] MEDS: AZITHROMYCIN 500 MG in Normal Saline 250 ML 250 MG IVPB (18:54)
[2023-03-17] MEDS: Metoprolol CR 25 MG TABCR PO (18:56)
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
--- NOTE | 2023-03-17 22:29 | NUR.NOTE ---
Pt admitted to unit. Pt alert and orientated x4. On O2 via nc at 2l. Mirlande sob at this time. In bed watching tv with call munoz in reach. Nursing Note:
[2023-03-17] MEDS: QUEtiapine 100 MG TAB 200 MG PO (23:19)
[2023-03-17] MEDS: hydrOXYzine PAMOATE 25 MG CAP PO (23:20)
[2023-03-17] MEDS: Polyethylene Glycol 3350 17 GM PACKET PO (23:26)
[2023-03-18 00:19] VITALS: PULSE 69
[2023-03-18] MEDS: diazePAM 5 MG TAB PO (02:01)
[2023-03-18 04:40] VITALS: BP 126/74; PULSE 68; RESP 16; TEMP 36.6; O2SAT 91
[2023-03-18 06:47] LABS: HCT 35.8 % (36.0-46.0); HGB 11.8 g/dL (11.2-15.7); MCH 26.9 pg (27.0-33.0); MCV 82 fL (80-95); MPV 10.4 fL (8.0-11.0); Platelet Count 195 10^3/uL (130-400); RBC 4.39 10^6/uL (3.93-5.22); RDW 13.7 % (11.7-14.6); RDW-SD 40.6 fL; WBC 4.31 10^3/uL (4.4-10.8)
[2023-03-18 06:55] VITALS: PULSE 61
[2023-03-18 07:17] LABS: ALT 10 U/L (14-59); AST 13 U/L (15-37); Albumin 3.1 g/dL (3.4-5.0); Alkaline Phosphatase 46 U/L (46-116); Anion Gap 7.2 mmol/L (3-11); BUN 9 mg/dL (7-18); Bilirubin, Total 0.7 mg/dL (0.2-1.0); CO2 28.8 mmol/L (21.0-32.0); CREATININE 0.8 mg/dL (0.55-1.02); Calcium 8.5 mg/dL (8.5-10.1); Chloride 105 mmol/L (98-107); Estimated GFR 75.84 (mL/min/1.73m2); Glucose 93 mg/dL (74-106); Magnesium 1.8 mg/dL (1.8-2.4); Sodium 141 mmol/L (136-145); Troponin I < 50 ng/L (<or=60)
--- NOTE | 2023-03-18 08:00 | DI.US_ITS ---
APPROVED REPORT EXAM: Comprehensive 2D, Doppler, and color-flow Echocardiogram Patient Location: In-Patient Room/Bed: [address] Principal: Nilda Plata RDCS (AE) Indications: PSVT Other Information Study Quality: Adequate. Technically limited study due to body habitus, inability to position patient exam done supine bedside. Conclusion Normal left ventricular wall thickness and chamber size. Ejection fraction is 55 to 60%. Wall motio n is normal Right ventricle appears mildly dilated with preserved systolic function Both atria are normal in size There are no structural valvular abnormalities Mild mitral regurgitation Estimated right ventricular systolic pressure is 36 mmHg Wall motion Left Ventricle Limited parasternal imaging due to patient positioning. The overall left ventricular systolic functio n appears normal. There is normal LV segmental wall motion. There is no ventricular septal defect vis ualized. LVEF is 55-60%. Right Ventricle Right ventricle is mildly dilated. Right ventricular systolic function is grossly normal. Atria The left atrium size is normal. The right atrium size is normal. The interatrial septum is intact wit h no evidence for an atrial septal defect. Aortic Valve The aortic valve is normal in structure. Aortic valve is trileaflet. There is no aortic valvular sten osis. No aortic regurgitation is present. Mitral Valve The mitral valve is normal in structure. No evidence of mitral valve stenosis. Mild mitral regurgita tion. Tricuspid Valve The tricuspid valve is normal in structure. There is no tricuspid valve stenosis. Trace to mild tric uspid regurgitation. The RVSP is 36.0 mmHg. Pulmonic Valve Pulmonic valve is not well visualized. There is no pulmonic valvular stenosis. There is no pulmonic v alvular regurgitation. Great Vessels The aortic root is normal in size. Ascending aorta is not well visualized. Aortic arch is not well vi sualized. The IVC collapses <50% with inspiration. Pericardium There is no pericardial effusion. 2D Dimensions Ao Root d 3.24 cm F: 2.7 - 3.3 M-Mode TAPSE 2.57 cm (M/F) >1.7 LV Diastology LV E/e MED 6.44 (<14) E/A Ratio 0.7 MV E' lateral 0.066 (>0.1 m/s) MV E Vmax 0.66 (0.4-1.3 m/s) LV E/e LAT 9.97 (<14) MV A Vmax 0.90 (0.4-1.3 m/s) MV E/E' medial 6.44 MV E/E' lateral 9.97 MV (E/E' average) 7.83 Aortic Valve LVOT Vmax 0.86 m/s AoV Area Vmax 1.86 cm2 LVOT Peak Grad 3.0 mmHg LVOT Mean Grad 1.9 mmHg LVOT Diam s 1.90 cm AoV Vmax 1.33 m/s Velocity Ratio 0.65 AoV Peak Grad 7.1 mmHg LVOT SV 60.78 mL AoV Mean Grad 3.7 mmHg AoV Area VTI 1.95 cm2 Mitral Valve MV DT 182 (160-240 msec) MV Vmax TIPS 0.91 m/s MV Mean Grad 1.2 (<2mmHg) MV VTI 0.281 m Pulmonary Valve PV Mean Grad 0.9 mmHg RVOT Peak Gr. 0.85 mmHg RVOT Mean Gr. 0.40 mmHg RVOT VTI 0.078 m RVOT Vmax 0.46 m/s Tricuspid Valve TR Peak Grad 28.4 mmHg TR Vmax 2.67 m/s RA Pressure 8.00 mmHg RVSP (TR) 36.0 mmHg
[2023-03-18 08:06] VITALS: BP 131/78; PULSE 74; RESP 17; TEMP 36.2; O2SAT 92
[2023-03-18] MEDS: Budesonide/Formoterol 160/4.5 6 GM 60 PUFF INH IH (09:01)
[2023-03-18] MEDS: QUEtiapine 100 MG TAB PO (09:12)
[2023-03-18] MEDS: Omeprazole 20 MG CAPCR PO (09:12)
[2023-03-18] MEDS: Cyanocobalamin 500 MCG TAB 1000 MCG PO (09:12)
[2023-03-18] MEDS: Apixaban 5 MG TAB PO (09:12)
[2023-03-18] MEDS: Gabapentin 800 MG TAB PO ×2 (09:13→13:42)
[2023-03-18] MEDS: Metoprolol 12.5 MG TAB PO (09:13)
[2023-03-18] MEDS: Sennosides/Docusate Sodium TAB 2 TAB PO (09:13)
[2023-03-18] MEDS: Cholecalciferol (Vitamin D3) 1,000 UNIT TAB 2000 UNITS PO (09:13)
[2023-03-18] MEDS: Diclofenac 1% Gel 100 GM TUBE TP ×2 (09:14→13:42)
[2023-03-18] MEDS: Normal Saline Flush 10 ML SYR IVP (09:27)
[2023-03-18 09:43] LABS: Lab Add On Test DONE
[2023-03-18 10:13] LABS: Procalcitonin < 0.1 ng/mL
[2023-03-18 12:04] VITALS: BP 166/71; PULSE 83; RESP 17; TEMP 36.7; O2SAT 91
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
[2023-03-18 13:59] VITALS: PULSE 78
--- NOTE | 2023-03-18 15:19 | RESPIRATORY ---
Patient refusing to particpate in exercise walk test as she stated Dr. Dunbar already knows I need 2L while walking but I will am NOT use oxygen at home. Dr. Gómez made aware and exercise walk not performed.
== END 2023-03-18 15:29 | disposition left against medical advice (07) ==
LOC: ER 21:43 → MS 21:45
PROVIDERS: Internal Medicine; Registered Nurse Emergency; Admitting Provider Family Medicine; Emergency Provider Emergency Medicine Emergency Medical Services; PCP Family Medicine; Visit Provider Family Medicine
DX: I47.1 Supraventricular tachycardia (principal); J84.10 Pulmonary fibrosis, unspecified; J96.11 Chronic respiratory failure with hypoxia; J43.9 Emphysema, unspecified; E03.9 Hypothyroidism, unspecified; Z66 Do not resuscitate
CPT/HCPCS: 36415; 71275; 80053; 84145; 85027; 87040; 93005; 93306; 94640; 96361; 96365; 99285; 71046; 83605; 83735; 83880; 84443; 84484; 85025; 93010; 99223; 99239; G0378; J0456; J3490

== ENCOUNTER 2023-03-18 14:47 | Outpatient (RCR) | payer OTHER, SELFPAY | END 2023-04-01 23:59 | disposition home or self-care (01) | LOC: RT 14:47 | PROVIDERS: PCP Family Medicine; Visit Provider Family Medicine | DX: I49.9 Cardiac arrhythmia, unspecified (principal) | CPT/HCPCS: 93270 ==

== ENCOUNTER 2023-04-29 08:02 | Outpatient (CLI) | payer OTHER, SELFPAY ==
--- NOTE | 2023-04-29 08:57 | W.CARDEVENT ---
Date of service: 04/29/23 Time of Service: 08:57 Cardiac Event Recorder Referring Provider:: Viki Loera Indications:: Cardiac arrhythmia Cardiac Event Note: This is a cardiac event monitor ordered for unspecified cardiac arrhythmia Patient was monitored for a total of 4 days Rhythm throughout was sinus. Average heart rate was 74. Maximum heart rate was 154. There was no bradycardia There were occasional ventricular ectopic beats There was no atrial fibrillation, no SVT, no high-grade AV block, no pauses greater than 3 seconds Symptoms were reported. Once they correlated with sinus rhythm and PVCs, other times to just sinus rhythm
== END 2023-04-29 08:03 | disposition home or self-care (01) ==
LOC: CARDOPNVT 08:02
PROVIDERS: PCP Family Medicine; Visit Provider Internal Medicine Cardiovascular Disease
DX: I49.9 Cardiac arrhythmia, unspecified (principal); I49.3 Ventricular premature depolarization
CPT/HCPCS: 93272

== ENCOUNTER 2023-05-11 08:30 | Outpatient (CLI) | payer OTHER, SELFPAY ==
--- NOTE | 2023-05-11 08:33 | W.CARDEVENT ---
Date of service: 05/11/23 Time of Service: 08:33 Cardiac Event Recorder Referring Provider:: Viki Loera Indications:: Cardiac arrhythmia Cardiac Event Note: This is a cardiac event monitor ordered for cardiac arrhythmia. Patient was monitored for 1 day Rhythm throughout was sinus. Average heart rate was 75. There was no bradycardia. Maximum was 124 Atrial and ventricular ectopic beats were noted There was no atrial fibrillation, no high-grade AV block, no SVT, no pauses greater than 3 seconds There were no apparent patient symptoms
== END 2023-05-11 08:31 | disposition home or self-care (01) ==
LOC: CARDOPNVT 08:30
PROVIDERS: PCP Family Medicine; Visit Provider Internal Medicine Cardiovascular Disease
DX: I49.9 Cardiac arrhythmia, unspecified (principal)
CPT/HCPCS: 93248

== ENCOUNTER → 2023-07-22 14:05 | Outpatient (CLI) | payer OTHER, SELFPAY ==
--- NOTE | 2023-07-22 15:22 | DI.RAD_ITS ---
Exam(s) XR CHEST 2V PA LATERAL EXAM: XR CHEST 2V PA LATERAL CLINICAL HISTORY: COPD J44.9, COUGH R05.9. TECHNIQUE: 2D digital imaging was performed. COMPARISON: CR XR CHEST 2V PA LATERAL from 03/17/[address] CHEST PE CTA from 03/17/2023 FINDINGS: 2 views: Heart size is normal. The mediastinum is not widened. Right lung is clear. There is platelike atelectasis in the lingular segment of the left lung which a ppears unchanged from March 2023. No new infiltrates nor pleural effusions. No pneumothorax. No pulmonary edema. IMPRESSION: Stable appearing platelike atelectasis in the lingular segment of the left lung which is unchanged fr om March 2023. DATA REPOSITORY: RADIATION DOSE DELIVERED:
== END ==
PROVIDERS: PCP Family Medicine; Visit Provider Family Medicine
DX: J44.9 Chronic obstructive pulmonary disease, unspecified (principal); R05.9 Cough, unspecified; J98.11 Atelectasis
CPT/HCPCS: 71046

== ENCOUNTER 2023-12-21 11:31 | Outpatient (CLI) | payer MEDICARE, SELFPAY ==
[2023-12-21 12:23] LABS: HCT 39.1 % (36.0-46.0); HGB 12.9 g/dL (11.2-15.7); MCH 28.1 pg (27.0-33.0); MCV 85 fL (80-95); MPV 9.8 fL (8.0-11.0); Platelet Count 186 10^3/uL (130-400); RBC 4.59 10^6/uL (3.93-5.22); RDW 15.1 % (11.7-14.6); RDW-SD 46.9 fL; WBC 5.56 10^3/uL (4.4-10.8)
[2023-12-21 13:06] LABS: ALT 17 U/L (14-59); AST 19 U/L (15-37); Albumin 3.5 g/dL (3.4-5.0); Alkaline Phosphatase 51 U/L (46-116); Anion Gap 3.3 mmol/L (3-11); BUN 9 mg/dL (7-18); Bilirubin, Total 0.5 mg/dL (0.2-1.0); CO2 33.7 mmol/L (21.0-32.0); Calcium 9.1 mg/dL (8.5-10.1); Chloride 101 mmol/L (98-107); Estimated GFR 57.66 (mL/min/1.73m2); Glucose 91 mg/dL (74-106); Potassium 3.8 mmol/L (3.5-5.1); Sodium 138 mmol/L (136-145); Total Protein 6.5 g/dL (6.4-8.2)
[2023-12-21 13:24] LABS: FREE T4 0.64 ng/dL (0.76-1.46)
== END 2023-12-21 11:32 | disposition home or self-care (01) ==
LOC: LOS 11:31
PROVIDERS: PCP Family Medicine; Referring Provider Family Medicine; Visit Provider Family Medicine
DX: E03.9 Hypothyroidism, unspecified (principal); Z79.01 Long term (current) use of anticoagulants; I10 Essential (primary) hypertension
CPT/HCPCS: 36415; 80053; 85027; 84439; 84443

== ENCOUNTER 2024-09-28 11:59 | Outpatient (REF) | payer MEDICARE, SELFPAY ==
[2024-09-28 21:11] LABS: *AMPHETAMINES SCREEN URINE Negative (Negative); *BARBITURATES SCREEN URINE Negative (Negative); *BENZODIAZEPINES SCREEN URINE Positive (Negative); Cannabinoids THC Negative (Negative); Cocaine Screen,Urine Negative (Negative); METHADONE URINE SCREEN Negative (Negative); OPIATES URINE SCREEN Negative (Negative)
[2024-09-28 21:12] LABS: Tricyclic Antidepressants Positive (Negative)
[2024-09-30 18:36] LABS: Fentanyl Scr w/Rfx Confirm Positive ng/mL (<1)
[2024-10-03 09:29] LABS: Fentanyl Confirmation >40 ng/mL (<2); Norfentanyl Confirmation >200 ng/mL (<10)
== END 2024-09-28 12:00 | disposition home or self-care (01) ==
LOC: LBN 11:59
PROVIDERS: PCP Family Medicine; Visit Provider Family Medicine
DX: G89.4 Chronic pain syndrome (principal); M25.512 Pain in left shoulder; H61.22 Impacted cerumen, left ear; F22 Delusional disorders; R25.1 Tremor, unspecified; J44.9 Chronic obstructive pulmonary disease, unspecified
CPT/HCPCS: 80307; 80354

== ENCOUNTER 2025-01-09 14:00 | Outpatient (CLI) | payer MEDICARE, SELFPAY ==
[2025-01-09 11:56] LABS: Abs Immature Grans 0.03 10^3/uL (0.0-0.06); Absolute Eosinophil Count 0.42 10^3/uL (0.0-0.7); Absolute Lymphocyte Count 1.87 10^3/uL (1.2-3.4); Absolute Monocyte Count 0.51 10^3/uL (0.1-0.8); Absolute Neutrophil Count 1.88 10^3/uL (1.2-6.7); Basophils % 2.1 %; Eosinophils % 8.7 %; HCT 39.2 % (36.0-46.0); HGB 12.8 g/dL (11.2-15.7); Immature Grans % 0.6 %; Lymphocytes % 38.9 %; MCH 28.6 pg (27.0-33.0); MCHC 32.7 % (32.0-36.0); MCV 88 fL (80-95); MPV 9.3 fL (8.0-11.0); Monocytes % 10.6 %; Neutrophils % 39.1 %; Platelet Count 237 10^3/uL (130-400); RBC 4.48 10^6/uL (3.93-5.22); RDW 13.2 % (11.7-14.6); RDW-SD 42.5 fL; WBC 4.81 10^3/uL (4.4-10.8)
[2025-01-09 13:07] LABS: ALT 16 U/L (14-59); AST 16 U/L (15-37); Albumin 3.3 g/dL (3.4-5.0); Alkaline Phosphatase 55 U/L (46-116); Anion Gap 1.7 mmol/L (3-11); BUN 10 mg/dL (7-18); Bilirubin, Total 0.8 mg/dL (0.2-1.0); CO2 34.3 mmol/L (21.0-32.0); Calcium 9.4 mg/dL (8.5-10.1); Calculated LDL 104 mg/dL (<100); Chloride 102 mmol/L (98-107); Cholesterol 171 mg/dL (<200); Estimated GFR 57.31 (mL/min/1.73m2); Glucose 92 mg/dL (74-106); HDL Cholesterol 45 mg/dL (>or=50); Potassium 4.2 mmol/L (3.5-5.1); Sodium 138 mmol/L (136-145); TSH (W/Ref FT4) 1.01 uIU/mL (0.36-3.74); Total Protein 6.3 g/dL (6.4-8.2); Triglyceride 112 mg/dL (<150); Vitamin B12 1936 pg/mL (193-986)
== END 2025-01-09 14:01 | disposition home or self-care (01) ==
LOC: LBO 14:01
PROVIDERS: PCP Family Medicine; Visit Provider Family Medicine
DX: E03.9 Hypothyroidism, unspecified (principal); Z79.01 Long term (current) use of anticoagulants; I10 Essential (primary) hypertension
CPT/HCPCS: 36415; 80053; 80061; 82607; 84443; 85025

== ENCOUNTER 2025-03-29 14:56 | Outpatient (CLI) | payer MEDICARE, SELFPAY ==
[2025-03-29 14:28] LABS: Abs Immature Grans 0.02 10^3/uL (0.0-0.06); HCT 39.7 % (36.0-46.0); HGB 13.9 g/dL (11.2-15.7); Immature Grans % 0.3 %; MCH 29.8 pg (27.0-33.0); MCHC 35.0 % (32.0-36.0); MCV 85 fL (80-95); MPV 10.0 fL (8.0-11.0); Platelet Count 210 10^3/uL (130-400); RBC 4.66 10^6/uL (3.93-5.22); RDW 13.0 % (11.7-14.6); RDW-SD 39.9 fL; WBC 7.45 10^3/uL (4.4-10.8)
[2025-03-29 16:35] LABS: ALT 12 U/L (14-59); AST 17 U/L (15-37); Albumin 3.6 g/dL (3.4-5.0); Alkaline Phosphatase 42 U/L (46-116); Anion Gap 6.9 mmol/L (3-11); BUN 11 mg/dL (7-18); Bilirubin, Total 1.2 mg/dL (0.2-1.0); CO2 29.1 mmol/L (21.0-32.0); Calcium 9.3 mg/dL (8.5-10.1); Chloride 96 mmol/L (98-107); Estimated GFR 65.03 (mL/min/1.73m2); Glucose 96 mg/dL (74-106); Potassium 3.9 mmol/L (3.5-5.1); Sodium 132 mmol/L (136-145); Total Protein 6.6 g/dL (6.4-8.2)
== END 2025-03-29 14:57 | disposition home or self-care (01) ==
LOC: LBO 14:59
PROVIDERS: PCP Family Medicine; Visit Provider Family Medicine
DX: R05.9 Cough, unspecified (principal); I10 Essential (primary) hypertension
CPT/HCPCS: 36415; 80053; 85025

== ENCOUNTER 2025-05-08 01:14 | Outpatient (CLI) | payer MEDICARE, SELFPAY ==
--- NOTE | 2025-05-08 11:00 | DI.US_ITS ---
Exam(s) US ABDOMEN EXAM: US ABDOMEN CLINICAL HISTORY: ? GB, pancreas,RUQ ABD PAIN,R10.11 TECHNIQUE: Ultrasound abdomen performed using standard protocol. COMPARISON: US US ABDOMEN from 07/22/[address] ABDOMEN PELVIS W CONTRAST from 04/10/2025 FINDINGS: ABDOMINAL AORTA AND IVC: The proximal aorta was visualized and is unremarkable. The remainder of the aorta cannot be seen. PANCREAS: The pancreas cannot be visualized due to overlying bowel gas. LIVER: Portions of the liver were difficult to visualize due to overlying bowel. The visualized liver is unremarkable. Hepatopetal flow in the Portal Vein. No evidence of a hepatic mass. The liver measures 12.1cm long. GALLBLADDER:No evidence of cholelithiasis. No evidence of wall thickening. No pericholecystic fluid identified. BILIARY SYSTEM: Common bile duct measures < 7 mm. No intrahepatic biliary ductal dilation. NICKERSON'S SIGN: Negative. KIDNEYS: Kidneys are symmetric in size. There are echogenic foci seen bilaterally consistent with nonobstructing stones. No evidence of hydronephrosis. There are bilateral renal cysts. No follow-up is recommended. SPLEEN: Not enlarged. ASCITES: None seen. IMPRESSION: 1. The examination is limited by overlying bowel gas. 2. No evidence of cholelithiasis. 3. Bilateral nephrolithiasis. No hydronephrosis. DATA REPOSITORY:
== END 2025-05-08 01:34 ==
LOC: DI 01:14
PROVIDERS: PCP Family Medicine; Visit Provider Family Medicine
DX: N20.0 Calculus of kidney (principal); R10.11 Right upper quadrant pain
CPT/HCPCS: 76700

== ENCOUNTER 2025-07-24 13:38 | Outpatient (CLI) | payer MEDICARE, SELFPAY ==
[2025-07-24 16:15] LABS: Abs Immature Grans 0.02 10^3/uL (0.0-0.06); HCT 39.3 % (36.0-46.0); HGB 13.3 g/dL (11.2-15.7); Immature Grans % 0.4 %; MCH 29.0 pg (27.0-33.0); MCHC 33.8 % (32.0-36.0); MCV 86 fL (80-95); MPV 10.2 fL (8.0-11.0); Platelet Count 199 10^3/uL (130-400); RBC 4.59 10^6/uL (3.93-5.22); RDW 13.6 % (11.7-14.6); RDW-SD 42.2 fL; WBC 5.65 10^3/uL (4.4-10.8)
[2025-07-24 16:30] LABS: ALT 7 U/L (10-49); AST 20 U/L (<34); Albumin 4.0 g/dL (3.2-5.0); Alkaline Phosphatase 45 U/L (46-116); Anion Gap 7.8 mmol/L (3-11); BUN 6 mg/dL (9-23); Bilirubin, Total 1.1 mg/dL (0.2-1.2); CO2 31.3 mmol/L (20.0-31.0); Calcium 9.3 mg/dL (8.3-10.6); Chloride 98 mmol/L (98-107); Glucose 103 mg/dL (74-106); Potassium 3.4 mmol/L (3.5-5.1); Sodium 137 mmol/L (136-145); TSH (W/Ref FT4) 0.27 uIU/mL (0.55-4.78); Total Protein 6.6 g/dL (5.7-8.2)
[2025-07-25 14:30] LABS: Albumin 63.8 % (55.8-66.1); Albumin g/dL 4.1 g/dL (3.6-5.2); Alpha 1 g/dL 0.30 g/dL (0.15-0.40); Alpha 2 g/dL 0.60 g/dL (0.50-1.00); Beta g/dL 0.60 g/dL (0.60-1.20); Gamma g/dL 0.80 g/dL (0.60-1.60); Total Protein 6.4 g/dL (6.3-8.2)
== END 2025-07-24 13:39 | disposition home or self-care (01) ==
PROVIDERS: PCP Family Medicine; Visit Provider Family Medicine
DX: E03.9 Hypothyroidism, unspecified (principal); M89.8X9 Other specified disorders of bone, unspecified site; R63.0 Anorexia; I10 Essential (primary) hypertension
CPT/HCPCS: 36415; 80053; 84165; 84439; 84443; 85025; 86320

== ENCOUNTER → 2025-07-24 14:40 | Outpatient (CLI) | payer MEDICARE, SELFPAY ==
--- NOTE | 2025-07-24 14:45 | DI.RAD_ITS ---
Exam(s) XR RIBS BI INCLUDE CHEST EXAM: XR RIBS BI INCLUDE CHEST CLINICAL HISTORY: posterior lt lower rib anterior rt lower rib pain R07.89 CHEST PAIN, BILAT TECHNIQUE: 2D digital imaging was performed. Nine images were obtained. COMPARISON: CR XR CHEST 2V PA LATERAL from 10/31/2018 CR XR CHEST 2V PA LATERAL from 07/22/2023 FINDINGS: MEDIASTINUM: Normal. HEART: Normal. PULMONARY VASCULATURE: Atherosclerotic calcification of the thoracic aorta is noted. LUNGS: There is unchanged scarring in the left lower lobe. No focal consolidating infiltrates are seen. PLEURAL SPACE: No pleural effusion or pneumothorax. BONE:There are degenerative changes seen throughout the thoracic spine. There are degenerative changes seen at the left glenohumeral joint. BILATERAL RIBS: Normal. OTHER FINDINGS:Normal. IMPRESSION: 1. No acute pulmonary findings. 2. Unremarkable ribs. No acute displaced rib fractures are seen at this time. DATA REPOSITORY: RADIATION DOSE DELIVERED:
--- NOTE | 2025-07-24 14:45 | DI.RAD_ITS ---
Exam(s) XR FEMUR RT EXAM: XR FEMUR RT CLINICAL HISTORY: mid shaft pain M89.8X5 DISORDER OF BONE. TECHNIQUE: 2D digital imaging was performed of the right femur. Four images were obtained. AP and lateral views were obtained. COMPARISON: CR LEFT KNEE COMPLETE W SUNRISE from 03/01/2008 CR RT KNEE COMPLETE W SUNRISE from 03/01/2008 CR RIGHT TIB/FIB from 08/05/2008 CR BILATERAL HIPS ADULT from 12/09/[address] ABDOMEN PELVIS W CONTRAST from 04/10/2025 FINDINGS: BONES: No acute fracture is present. No bony destructive lesion is seen. There is chondrocalcinosis seen in the femoral tibial joint. SOFT TISSUE: Atherosclerotic calcification is present. There is a 3-4 mm long linear radiopaque foreign body in the soft tissues in the distal thigh which is unchanged dating back to 2007. IMPRESSION: No acute abnormality is seen. DATA REPOSITORY: RADIATION DOSE DELIVERED:
== END ==
LOC: DI 14:41
PROVIDERS: PCP Family Medicine; Visit Provider Family Medicine
DX: R07.89 Other chest pain (principal); M89.8X5 Other specified disorders of bone, thigh
CPT/HCPCS: 73552; 71046; 71110